=== PATIENT | female | born 1960 | race Caucasian/White ===

== ENCOUNTER 2017-03-20 21:25 | Inpatient (IN) | payer MEDICAID ==
--- NOTE | 2017-03-20 21:42 | C.PDOC ---
History Of Present Illness pt was at a wedding libertarian, felice chavez began to have chest pain, some shortness of breath and became diaphoretic. Has hx of previous mi, was given 4 81 mg asa , 4 sl ntg, Time Seen by Provider: 03/20/17 21:25 Chief Complaint (Nursing): Chest Pain History Per: Patient, EMS History/Exam Limitations: no limitations Onset/Duration Of Symptoms: Hrs Current Symptoms Are (Timing): Still Present Context: Other Severity: Severe Pain Scale Rating Of: 8 Quality: Sharp Associated Symptoms: Nausea. denies: Dyspnea Alleviating Factors: None Nitro Therapy Administered: 3, Per EMS, No Relief Recent travel outside of the [place]: No Additional History Per: Patient Past Medical History Reviewed: Historical Data, Nursing Documentation, Vital Signs Vital Signs: Last Vital Signs Temp Pulse 106 H 03/20/17 21:29 Resp BP 108/69 03/20/17 21:29 Pulse Ox 92 L 03/20/17 21:58 - Medical History PMH: HTN, Hypercholesterolemia Denies: Chronic Kidney Disease Surgical History: Coronary Stent (2) Family History: States: No Known Family Hx - Social History Hx Alcohol Use: No Hx Substance Use: No - Immunization History Hx Tetanus Toxoid Vaccination: No Hx Influenza Vaccination: No Hx Pneumococcal Vaccination: No Review Of Systems Constitutional: Positive for: Sweats. Negative for: Fever, Chills Eyes: Negative for: Redness Cardiovascular: Positive for: Chest Pain Respiratory: Negative for: Cough Gastrointestinal: Positive for: Nausea. Negative for: Vomiting, Abdominal Pain Genitourinary: Negative for: Dysuria Musculoskeletal: Positive for: Back Pain Skin: Negative for: Rash Neurological: Negative for: Weakness Psych: Positive for: Anxiety Physical Exam - Physical Exam Appears: In Acute Distress Skin: Warm, Diaphoretic Head: Normacephalic Eye(s): bilateral: Normal Inspection Oral Mucosa: Moist Neck: Supple Chest: Symmetrical Cardiovascular: Rhythm Regular Respiratory: No Rales, Rhonchi, No Wheezing Gastrointestinal/Abdominal: Soft, No Tenderness, No Distention Back: No CVA Tenderness Extremity: No Tenderness Extremity: Bilateral: Atraumatic, Normal Color And Temperature, Normal ROM Pulses: Left Dorsalis Pedis: Normal, Right Dorsalis Pedis: Normal Neurological/Psych: Oriented x3, Normal Speech, Normal Cognition Gait: Unable To Assess ED Course And Treatment - Laboratory Results Result Diagrams: 03/20/17 21:47 03/20/17 21:47 ECG: Interpreted By Me, Viewed By Me ECG Rhythm: Sinus Tachycardia (112), ST/T Changes (poss ant wall mi) O2 Sat by Pulse Oximetry: 92 Pulse Ox Interpretation: Abnormal - Radiology CXR: Interpreted by Me, Viewed By Me CXR Interpretation: Yes: Other (top nl heart). No: Infiltrates, Fracture Progress Note: spoke with dr bishop at 9:15 PM after life net ekg - will repeat on arrival. 9:22 pm. repeated ekg sent to dr bishop. code heart activated Critical Care Time - Critical Care Note Total Time (in mins): 30 Documented critical care: time excludes all time spent performing seperately billable procedures. Disposition Discussed With Dr.: Linus Toledo Comment: accepted the pt on his service and took over the care at 10PM Doctor Will See Patient In The: ED Counseled Patient/Family Regarding: Studies Performed, Diagnosis - Disposition Disposition: HOSPITALIZED Disposition Time: 21:47 Condition: CRITICAL - Clinical Impression Clinical Impression: Chest pain, Acute myocardial infarction Decision To Admit - Pt Status Changed To: Hospital Disposition Of: Inpatient - Admit Certification Admit to Inpatient:: After my assessment, the patient will require hospitalization for at least two midnights. This is because of the severity of symptoms shown, intensity of services needed, and/or the medical risk in this patient being treated as an outpatient. - InPatient: Physician Admission Certification: I certify that this patient requires 2 or more midnights of care for the following reason:: After my assessment, the patient will require hospitalization for at least two midnights. This is because of the severity of symptoms shown, intensity of services needed, and/or the medical risk in this patient being treated as an outpatient. - . Bed Request Type: ICU Admitting Physician: Linus Toledo Patient Diagnosis: Chest pain, Acute myocardial infarction
[2017-03-20 21:51] LABS: BASO % 0.2 % (0.0-2.0); EOS # 0.1 K/uL (0.0-0.7); EOS % 0.5 % (0.0-4.0); HEMATOCRIT 40.8 % (34.0-47.0); LYMPH # 5.1 K/uL (1.0-4.3); LYMPH % 28.1 % (20.0-40.0); MEAN CELL VOLUME 86.4 fL (81.0-99.0); MEAN CORPUSCULAR HEMOGLOBIN 28.4 pg (27.0-31.0); MEAN CORPUSCULAR HGB CONC 32.9 g/dL (33.0-37.0); MEAN PLATELET VOLUME 9.3 fL (7.2-11.7); MONO # 1.4 K/uL (0.0-0.8); MONO % 7.8 % (0.0-10.0); RED CELL DISTRIBUTION WIDTH 13.9 % (11.5-14.5)
--- NOTE | 2017-03-20 21:54 | CP.PCM.HP ---
<Roxanne Quintero - Last Filed: 03/20/17 23:04> History of Present Illness - History of Present Illness History of Present Illness: Medicine Note CC: Chest pain HPI: 56 F with PMHx of HTN, HLD, DM, CAD, [place] x2 with 2 stents (2011) presented to ED with Chest pain. CODE HEART called 21:35. Patient reports she was attending a wedding today when midsternal chest pain started 2 hours prior to arrival. The pain was pressure like in nature, radiated to her back and down her left arm. She became diaphoretic, SOB, she experienced nausea as well. She was given ASA and nitro out on the field, upon arrival EKG: Sinus Tachycardia ( 112), ST/T Changes (poss ant wall [place]). Heparin, Brilinta administered. Dr. Mary notified patient sent to [facility]. PMHx: HTN, HLD, DM, CAD, [place] x2 with 2 stents (2011) PSHx: Cardiac Stents Meds: Lipitor, Metoprolol, metformin All: NKDA SHx: smokes 10 cigarettes per day /20 years, denied alcohol or illicit drug use FHx: brother and father had [place] Present on Admission - Present on Admission Any Indicators Present on Admission: No Review of Systems - Constitutional Constitutional: absent: Headache - EENT Eyes: absent: Change in Vision Ears: absent: Tinnitus Nose/Mouth/Throat: absent: Dysphagia, Sore Throat - Breasts Breasts: absent: Pain - Cardiovascular Cardiovascular: Chest Pain, Diaphoresis, Pain Radiating to Arm/Neck/Jaw - Respiratory Respiratory: absent: Cough, Dyspnea - Gastrointestinal Gastrointestinal: absent: Abdominal Pain, Nausea, Vomiting - Genitourinary Genitourinary: absent: Dysuria, Hematuria - Musculoskeletal Musculoskeletal: Back Pain - Integumentary Integumentary: absent: Wounds - Neurological Neurological: absent: Syncope, Tingling, Vertigo, Weakness - Psychiatric Psychiatric: absent: Anxiety, Depression - Hematologic/Lymphatic Hematologic: absent: Easy Bleeding, Easy Bruising Past Patient History - Infectious Disease Hx of Infectious Diseases: None - Past Social History Smoking Status: Never Smoked - CARDIAC Hx Hypercholesterolemia: Yes Hx Hypertension: Yes - NEUROLOGICAL Hx Neurological Disorder: No - HEENT Hx HEENT Problems: No - RENAL Hx Chronic Kidney Disease: No - ENDOCRINE/METABOLIC Hx Diabetes Mellitus Type 1: Yes - PSYCHIATRIC Hx Substance Use: No - SURGICAL HISTORY Hx Coronary Stent: Yes (2) - ANESTHESIA Hx Anesthesia: Yes Hx Anesthesia Reactions: No Meds Allergies/Adverse Reactions: Allergies Allergy/AdvReac Type Severity Reaction Status Date / Time No Known Allergies Allergy Unverified 03/20/17 21:36 Physical Exam - Constitutional Appears: In Acute Distress - Head Exam Head Exam: NORMAL INSPECTION, NORMOCEPHALIC - Eye Exam Eye Exam: EOMI, Normal appearance, PERRL - ENT Exam ENT Exam: Mucous Membranes Moist - Respiratory Exam Respiratory Exam: Clear to Auscultation Bilateral, NORMAL BREATHING PATTERN. absent: Wheezes - Cardiovascular Exam Cardiovascular Exam: Tachycardia - GI/Abdominal Exam GI & Abdominal Exam: Normal Bowel Sounds, Soft. absent: Tenderness - Rectal Exam Rectal Exam: Deferred - Extremities Exam Extremities exam: Positive for: normal inspection, pedal pulses present. Negative for: pedal edema, tenderness - Back Exam Back exam: NORMAL INSPECTION - Neurological Exam Neurological exam: Alert, CN II-XII Intact, Oriented x3 - Skin Skin Exam: Diaphoretic, Intact, Pallor, Warm Results - Vital Signs Recent Vital Signs: Last Vital Signs Temp Pulse 106 H 03/20/17 21:29 Resp BP 108/69 03/20/17 21:29 Pulse Ox 92 L 03/20/17 21:42 - Labs Result Diagrams: 03/20/17 21:47 03/20/17 21:47 Assessment & Plan - Assessment and Plan (Free Text) Assessment: 56 F with PMHx of HTN, HLD, DM, CAD, [place] x2 with 2 stents (2011) presented to ED with Chest pain. Plan: STEMI * Code Heart initiated @ 21:35 * EKG: Sinus Tachycardia (112), ST/T Changes (poss ant wall UT) * Given ASA, Nitro on the field, heparin, brilinta, morphine in ED. * Dr. Mary called - patient was sent up to cardiac [facility] training [facility] * Admitted to ICU s/p cardiac cath Hx CAD * [place] x2 with 2 stents (2011) HTN * Patient takes Metoprolol at home, pending reccs by Dr. Mary. HLD * Crestor 5mg PO QHS * Lipid panel: WNL DM * Accuchecks * ISS-low * HGBA1C 6.7 Prophylactic Measure * GI PPX: Protonix 40mg PO daily * DVT PPX: SCDs, and anticoagulation as per Dr. Mary * Heart Healthy Diet * Zofran PRN * Toradol and Morphine PRN for pain control DW Ingrid Herrera DO, PGY-1 <Linus Toledo P - Last Filed: 03/26/17 06:32> Results - Vital Signs Recent Vital Signs: Last Vital Signs Temp 98.4 F 03/23/17 16:00 Pulse 90 03/23/17 18:00 Resp 18 03/23/17 18:00 BP 111/64 03/23/17 15:47 Pulse Ox 96 03/23/17 12:20 - Labs Result Diagrams: 03/22/17 06:20 03/22/17 06:20 Attending/Attestation - Attestation I have personally seen and examined this patient.: Yes I have fully participated in the care of the patient.: Yes I have reviewed all pertinent clinical information: Yes
[2017-03-20 21:58] LABS: INR 0.9
[2017-03-20 21:59] LABS: CHLORIDE 106 mmol/L (98-107)
[2017-03-20 22:00] LABS: POTASSIUM 3.3 mmol/L (3.6-5.2); SODIUM 140 mmol/L (132-148)
[2017-03-20 22:02] LABS: BILIRUBIN,TOTAL 0.6 mg/dL (0.2-1.3); CARBON DIOXIDE 21 mmol/L (22-30); CHOLESTEROL 160 mg/dL (0-199); GFR AFRICAN-AMERICAN > 60
[2017-03-20 22:03] LABS: ALB/GLOB RATIO 1.3 (1.0-2.1); ALKALINE PHOSPHATASE 88 U/L (38-126); ALT/SGPT 32 U/L (9-52); AST/SGOT 24 U/L (14-36); BLOOD UREA NITROGEN 14 mg/dL (7-17); CALCIUM 9.7 mg/dl (8.6-10.4); GLUCOSE,RANDOM 196 mg/dL (65-105); TOTAL PROTEIN 7.6 g/dL (6.3-8.3)
[2017-03-20] MEDS ORDERED: Eptifibatide 20 mg/10mL Inj IVP ONE (22:48)
[2017-03-20] MEDS ORDERED: Eptifibatide 0.75 mg/ml 75 MG/100 ML BOTTLE IV ONE (22:48)
[2017-03-20] MEDS ORDERED: Sodium Chloride 0.9% 1,000 ML IV ONE (23:40)
[2017-03-21] MEDS: Eptifibatide 0.75 mg/ml 75 MG/100 ML BOTTLE IV SCH ×5 (00:03→21:59)
--- NOTE | 2017-03-21 00:40 | CP.PCM.CON ---
History of Present Illness - History of Present Illness History of Present Illness: 56 Female with PMHx of HTN, Hyperlipidemia, DM, CAD, [place] x2 with 2 stents (2011 ) presented to ED with Chest pain. Patient was at a wedding 710/17 when she developed midsternal chest pain , pressure like in nature, radiated to her back and down her left arm associated with diaphoresis,nausea and shortness of breath. She was given ASA and nitro out on the field, upon arrival EKG: Sinus Tachycardia , ST/T Changes (poss ant wall [place]). Heparin, Brilinta administered. Code heart called sent to [facility]. Cath report not available.Had Stent placed in LADl as per report Denies chest pain now Meds: Lipitor, Metoprolol, metformin ,zetia,plavix All: NKDA SHx: smokes 10 cigarettes per day /20 years, denied alcohol or illicit drug use FHx: brother and father had [place] Review of Systems - Constitutional Constitutional: absent: Fever, Malaise, Weakness - EENT Eyes: absent: Change in Vision Ears: absent: Tinnitus, Dizziness Nose/Mouth/Throat: absent: Sore Throat, Neck Pain - Cardiovascular Cardiovascular: Chest Pain, Chest Pain at Rest, Dyspnea on Exertion, Pain Radiating to Arm/Neck/Jaw. absent: Claudication, Edema, Leg Edema, Palpitations , Pedal Edema, Syncope - Respiratory Respiratory: Dyspnea on Exertion. absent: Wheezing, Chest Congestion - Gastrointestinal Gastrointestinal: absent: Change in Bowel Habits, Heartburn - Genitourinary Genitourinary: absent: Dysuria - Musculoskeletal Musculoskeletal: absent: Myalgias, Stiffness - Integumentary Integumentary: absent: Unusual Bruising - Neurological Neurological: absent: Dizziness, Syncope - Endocrine Endocrine: absent: Polyphagia, Polyuria Past Patient History - Infectious Disease Hx of Infectious Diseases: None - Past Medical History & Family History Past Medical History?: Yes - Past Social History Smoking Status: Never Smoked Chewing Tobacco Use: No Occupation: unemployed Alcohol: None Drugs: Denies Home Situation {Lives}: With Family - CARDIAC Hx Cardiac Disorders: Yes Hx Hypercholesterolemia: Yes Hx Hypertension: Yes - PULMONARY Hx Respiratory Disorders: No - NEUROLOGICAL Hx Neurological Disorder: No - HEENT Hx HEENT Problems: Yes Other/Comment: eye glasses for reading - RENAL Hx Chronic Kidney Disease: No - ENDOCRINE/METABOLIC Hx Endocrine Disorders: Yes Hx Diabetes Mellitus Type 1: Yes - HEMATOLOGICAL/ONCOLOGICAL Hx Blood Disorders: No - MUSCULOSKELETAL/RHEUMATOLOGICAL Hx Musculoskeletal Disorders: No Hx Falls: No - GASTROINTESTINAL Hx Gastrointestinal Disorders: No - GENITOURINARY/GYNECOLOGICAL Hx Genitourinary Disorders: No - PSYCHIATRIC Hx Psychophysiologic Disorder: No Hx Substance Use: No - SURGICAL HISTORY Hx Surgeries: Yes Hx Cardiac Catheterization: Yes Hx Coronary Stent: Yes (2) - ANESTHESIA Hx Anesthesia: Yes Hx Anesthesia Reactions: No Hx Malignant Hyperthermia: No Has any member of the family had a problem w/ anesthesia?: No Meds Allergies/Adverse Reactions: Allergies Allergy/AdvReac Type Severity Reaction Status Date / Time No Known Allergies Allergy Unverified 03/20/17 21:36 - Medications Medications: Current Medications Aspirin (Aspirin) 325 mg PO DAILY [facility] Enalapril Maleate (Vasotec) 5 mg PO DAILY [facility] Furosemide (Lasix) 40 mg IVP ONCE ONE Stop: 03/21/17 10:01 Eptifibatide (Integrilin) 75 mg in 100 mls @ 9 mls/hr IV .Q11H7M [facility] Stop: 03/21/17 23:46 Last Admin: 03/21/17 00:03 Dose: 9 mls/hr Sodium Chloride (Sodium Chloride 0.9%) 1,000 mls @ 50 mls/hr IV .Q20H ONE Stop: 03/21/17 19:39 Last Admin: 03/21/17 00:02 Dose: 50 mls/hr Insulin Human Regular (Novolin R) 0 unit SC ACHS JOSE FRANCISCO PRN Reason: Protocol Ketorolac Tromethamine (Toradol) 30 mg IVP Q6 PRN PRN Reason: Pain, moderate (4-7) Metoprolol Tartrate (Lopressor) 25 mg PO BID [facility] Morphine Sulfate (Morphine) 2 mg IVP Q4 PRN PRN Reason: Pain, severe (8-10) Ondansetron HCl (Zofran Inj) 4 mg IVP Q6H PRN PRN Reason: Nausea/Vomiting Pantoprazole Sodium (Protonix Ec Tab) 40 mg PO DAILY [facility] Pneumococcal Polyvalent Vaccine (Pneumovax 23 Vaccine) 0.5 ml IM .ONCE ONE Stop: 03/23/17 10:01 Rosuvastatin Calcium (Crestor) 10 mg PO HS [facility] Ticagrelor (Brilinta) 90 mg PO BID JOSE FRANCISCO Physical Exam - Constitutional Appears: No Acute Distress - Head Exam Head Exam: ATRAUMATIC, NORMAL INSPECTION, NORMOCEPHALIC - Eye Exam Eye Exam: EOMI, Normal appearance, PERRL. absent: Scleral icterus Pupil Exam: NORMAL ACCOMODATION - ENT Exam ENT Exam: Mucous Membranes Moist, Normal Exam - Neck Exam Neck exam: Positive for: Normal Inspection. Negative for: Lymphadenopathy - Respiratory Exam Respiratory Exam: Clear to Auscultation Bilateral, NORMAL BREATHING PATTERN. absent: Chest Wall Tenderness, Rhonchi, Wheezes, Respiratory Distress - Cardiovascular Exam Cardiovascular Exam: Tachycardia, REGULAR RHYTHM. absent: JVD - GI/Abdominal Exam GI & Abdominal Exam: Normal Bowel Sounds, Soft. absent: Tenderness - Back Exam Back exam: NORMAL INSPECTION. absent: CVA tenderness (L), CVA tenderness (R) - Neurological Exam Neurological exam: Alert, Oriented x3 - Psychiatric Exam Psychiatric exam: Normal Affect - Skin Skin Exam: Intact, Normal Color, Warm Results - Vital Signs Recent Vital Signs: Last Vital Signs Temp 98 F 03/20/17 22:10 Pulse 93 H 03/20/17 22:10 Resp 25 H 03/20/17 22:10 BP 116/71 03/20/17 22:10 Pulse Ox 92 L 03/20/17 22:18 - Labs Result Diagrams: 03/20/17 21:47 03/20/17 21:47 Labs: Laboratory Results - last 24 hr 03/20/17 03/20/17 03/20/17 21:47 21:47 21:47 WBC 18.0 H RBC 4.72 Hgb 13.4 Hct 40.8 MCV 86.4 MCH 28.4 MCHC 32.9 L RDW 13.9 Plt Count 293 MPV 9.3 Neut % (Auto) 63.4 Lymph % (Auto) 28.1 Sharp % (Auto) 7.8 Eos % (Auto) 0.5 Baso % (Auto) 0.2 Neut # 11.4 H Lymph # 5.1 H Sharp # 1.4 H Eos # 0.1 Baso # 0.0 PT 10.5 INR 0.9 APTT 26 Sodium 140 Potassium 3.3 L Chloride 106 Carbon Dioxide 21 L Anion Gap 16 BUN 14 Creatinine 0.7 Est GFR ( Amer) > 60 Est GFR (Non-Af Amer) > 60 Random Glucose 196 H Hemoglobin A1c Calcium 9.7 Total Bilirubin 0.6 AST 24 ALT 32 Alkaline Phosphatase 88 Total Creatine Kinase 129 CK-MB (Mass) 1.02 Troponin I, Quant < 0.0120 Total Protein 7.6 Albumin 4.3 Globulin 3.3 Albumin/Globulin Ratio 1.3 Triglycerides 106 Cholesterol 160 LDL Cholesterol Direct 87 HDL Cholesterol 59 Serum Ketones Small Blood Type Antibody Screen 03/20/17 03/20/17 21:47 21:47 WBC RBC Hgb Hct MCV MCH MCHC RDW Plt Count MPV Neut % (Auto) Lymph % (Auto) Sharp % (Auto) Eos % (Auto) Baso % (Auto) Neut # Lymph # Sharp # Eos # Baso # PT INR APTT Sodium Potassium Chloride Carbon Dioxide Anion Gap BUN Creatinine Est GFR ( Amer) Est GFR (Non-Af Amer) Random Glucose Hemoglobin A1c 6.7 H Calcium Total Bilirubin AST ALT Alkaline Phosphatase Total Creatine Kinase CK-MB (Mass) Troponin I, Quant Total Protein Albumin Globulin Albumin/Globulin Ratio Triglycerides Cholesterol LDL Cholesterol Direct HDL Cholesterol Serum Ketones Blood Type A NEGATIVE Antibody Screen Negative Assessment & Plan - Assessment and Plan (Free Text) Assessment: 1.CAD s/p Stents in the past.LAD stent placed today.On Brilinta,aspirin and epifibatide drip 2.HTN/Hyperlipidemia continue medications-on enalapril,metoprolol and rosuvastatin 3.DM continue meds.hbAIC 6.7.On mEtformin at home.Insulin Coverage. 4.Hypokalemia-potassium replaced,rpt labs
[2017-03-21 06:19] LABS: BASO % 0.2 % (0.0-2.0); EOS % 0.2 % (0.0-4.0); HEMATOCRIT 37.4 % (34.0-47.0); LYMPH # 1.9 K/uL (1.0-4.3); LYMPH % 15.3 % (20.0-40.0); MEAN CELL VOLUME 88.4 fL (81.0-99.0); MEAN CORPUSCULAR HEMOGLOBIN 28.6 pg (27.0-31.0); MEAN CORPUSCULAR HGB CONC 32.3 g/dL (33.0-37.0); MEAN PLATELET VOLUME 9.6 fL (7.2-11.7); MONO # 0.9 K/uL (0.0-0.8); MONO % 7.4 % (0.0-10.0); NRBC % 0.1 % (0.0-2.0); RED CELL DISTRIBUTION WIDTH 13.4 % (11.5-14.5); WHITE BLOOD COUNT 12.1 K/uL (4.8-10.8)
[2017-03-21 06:33] LABS: CHLORIDE 105 mmol/L (98-107); POTASSIUM 4.4 mmol/L (3.6-5.2); SODIUM 135 mmol/L (132-148)
[2017-03-21 06:35] LABS: ALB/GLOB RATIO 1.1 (1.0-2.1); ALKALINE PHOSPHATASE 56 U/L (38-126); AST/SGOT 138 U/L (14-36); BILIRUBIN,TOTAL 0.5 mg/dL (0.2-1.3); CARBON DIOXIDE 20 mmol/L (22-30); GFR AFRICAN-AMERICAN > 60; TOTAL PROTEIN 6.6 g/dL (6.3-8.3)
[2017-03-21 06:36] LABS: ALT/SGPT 38 U/L (9-52); BLOOD UREA NITROGEN 10 mg/dL (7-17); GLUCOSE,RANDOM 128 mg/dL (65-105); MAGNESIUM 1.6 mg/dL (1.6-2.3)
[2017-03-21 07:04] LABS: THYROID STIMULATING HORMONE 0.27 mIU/L (0.46-4.68)
[2017-03-21] MEDS: (Novolin R) Insulin Human Regular 100 units/ml vial SC SCH ×4 (07:52→21:43)
--- NOTE | 2017-03-21 08:21 | CP.PCM.PN ---
Subjective - Date & Time of Evaluation Date of Evaluation: 03/21/17 Time of Evaluation: 08:00 - Subjective Subjective: Hospitalist Progress Note (Patient was seen and examined at 8:00 AM 03/21/17 ICU Bed 3) 56 year old female (PMHx CAD, HTN, HLD, DM 2) presented to [facility] ER with midsternal chest pain (described as pressure like, radiating to back and down the left arm, associated with SOB/Diaphoresis/Nausea). ST changes were noted on EKG and CODE HEART was called and patient underwent Cardiac Catheterization leading to stenting of the LAD. CODE STATUS: FULL CODE. NO Advance Directive/Living Will. Designates as Health Care Proxy Currrently upon FULL ROS there is NO chest pain, NO palpitations, NO SOB/Cough/ Wheezing, NO abdominal pain, NO n/v/d/c (last bowel movement was 03/20/17 and it was normal), NO burning/pain with urination, NO lightheadedness/dizziness, NO headache, NO new changes in vision, NO new changes in hearing, NO paresthesias, NO diaphoresis. Exam: HEENT: NCA, EOMI, PERRLA, NO lymphadenopathy, NO thyromegaly, NO pharyngeal erythema/exudate Cardio: NS1 and NS2, NO M/R/G Resp: CTA B/L, NO R/R/W GI: BSx4 are decreased, NT, ND, NO HSM, NO guarding rebound tenderness Ext: Pulses are strong and equal, Capillary Refill is 2 seconds, NO edema, NO bleeding at right groin entry site Neuro: CN II through XII are grossly intact Assessment and Plan: 1). STEMMI ASA 325 mg PO 1x/day Lisinopril 5 mg PO 1x/day Metoprolol 25 mg PO 2x/day Brilinta 90 mg PO 2x/day Eptifibatide 75 mg/100 ml at 9 ml/hour till 11:45 PM 03/21/[address] Mary F/U 2D Echocardiogram 2). Hx CAD See Assessment and Plan #1 3). Hx HTN Lisinopril and Metoprolol as above 4). Hx HLD Crestor 10 mg PO QHS Lipid Panel is at goal 5). Hx DM 2 HgBA1C 6.7 HOLDING Metformin 500 mg PO 2x/day for the next 48 hours RISS with Accuchecks 6). Low TSH Repeat TSH with T4 ordered for 03/22/17 6). Prophylactic Measures Morphine 2 mg IV Q4H PRN Pain Zofran 4 mg IV Q6H PRN N/V Protonix 40 mg PO 1x/day NS @ 50 ml/hour Objective - Vital Signs/Intake and Output Vital Signs (last 24 hours): Temp Pulse Resp BP Pulse Ox 97.5 F L 100 H 19 125/78 99 03/21/17 04:00 03/21/17 07:00 03/21/17 07:00 03/21/17 06:52 03/21/17 07:00 Intake and Output: 03/21/17 03/21/17 06:59 18:59 Intake Total 513 Output Total 350 Balance 163 - Medications Medications: Current Medications Aspirin (Aspirin) 325 mg PO DAILY [facility] Enalapril Maleate (Vasotec) 5 mg PO DAILY [facility] Furosemide (Lasix) 40 mg IVP ONCE ONE Stop: 03/21/17 10:01 Eptifibatide (Integrilin) 75 mg in 100 mls @ 9 mls/hr IV .Q11H7M [facility] Stop: 03/21/17 23:46 Last Admin: 03/21/17 07:57 Dose: 9 mls/hr Sodium Chloride (Sodium Chloride 0.9%) 1,000 mls @ 50 mls/hr IV .Q20H ONE Stop: 03/21/17 19:39 Last Admin: 03/21/17 00:02 Dose: 50 mls/hr Insulin Human Regular (Novolin R) 0 unit SC ACHS JOSE FRANCISCO PRN Reason: Protocol Last Admin: 03/21/17 07:52 Dose: Not Given Metoprolol Tartrate (Lopressor) 25 mg PO BID [facility] Morphine Sulfate (Morphine) 2 mg IVP Q4 PRN PRN Reason: Pain, severe (8-10) Ondansetron HCl (Zofran Inj) 4 mg IVP Q6H PRN PRN Reason: Nausea/Vomiting Pantoprazole Sodium (Protonix Ec Tab) 40 mg PO DAILY [facility] Pneumococcal Polyvalent Vaccine (Pneumovax 23 Vaccine) 0.5 ml IM .ONCE ONE Stop: 03/23/17 10:01 Rosuvastatin Calcium (Crestor) 10 mg PO HS [facility] Ticagrelor (Brilinta) 90 mg PO BID [facility] - Labs Labs: 03/21/17 06:11 03/21/17 06:13 PT 10.5 SECONDS (9.7-12.2) 03/20/17 21:47 INR 0.9 03/20/17 21:47 APTT 26 SECONDS (21-34) 03/20/17 21:47
--- NOTE | 2017-03-21 08:56 | RAD ---
HISTORY: code heart COMPARISON: No prior. FINDINGS: LUNGS: There is a possible cystic emphysematous changes in the suprahilar regions/ tiny blebs. No dense consolidation. PLEURA: Left inferolateral pleural thickening with possible tiny pleural effusion. A small right pleural effusion is not excluded. . Summation of soft tissues could simulate the appearance of the right costophrenic angle. No pneumothorax apparent. CARDIOVASCULAR: Defibrillator device in place. Heart size within normal limits. OSSEOUS STRUCTURES: No significant abnormalities. VISUALIZED UPPER ABDOMEN: Normal. OTHER FINDINGS: None. IMPRESSION: Small left pleural effusion and/or pleural thickening. Small right pleural effusion versus summation of the right breast soft tissues. Tiny cystic emphysematous changes and/or bronchiectasis suprahilar locations. No consolidation.
[2017-03-21] MEDS: Pantoprazole 40 mg EC Tab PO SCH (09:48)
--- NOTE | 2017-03-21 12:05 | CP.PCM.CON ---
History of Present Illness - History of Present Illness History of Present Illness: Middle aged female who presented with STEMI Past Patient History - Infectious Disease Hx of Infectious Diseases: None - Past Medical History & Family History Past Medical History?: Yes - Past Social History Smoking Status: Never Smoked Chewing Tobacco Use: No Occupation: unemployed Alcohol: None Drugs: Denies Home Situation {Lives}: With Family - CARDIAC Hx Cardiac Disorders: Yes Hx Hypercholesterolemia: Yes Hx Hypertension: Yes - PULMONARY Hx Respiratory Disorders: No - NEUROLOGICAL Hx Neurological Disorder: No - HEENT Hx HEENT Problems: Yes Other/Comment: eye glasses for reading - RENAL Hx Chronic Kidney Disease: No - ENDOCRINE/METABOLIC Hx Endocrine Disorders: Yes Hx Diabetes Mellitus Type 1: Yes - HEMATOLOGICAL/ONCOLOGICAL Hx Blood Disorders: No - MUSCULOSKELETAL/RHEUMATOLOGICAL Hx Musculoskeletal Disorders: No Hx Falls: No - GASTROINTESTINAL Hx Gastrointestinal Disorders: No - GENITOURINARY/GYNECOLOGICAL Hx Genitourinary Disorders: No - PSYCHIATRIC Hx Psychophysiologic Disorder: No Hx Substance Use: No - SURGICAL HISTORY Hx Surgeries: Yes Hx Cardiac Catheterization: Yes Hx Coronary Stent: Yes (2) - ANESTHESIA Hx Anesthesia: Yes Hx Anesthesia Reactions: No Hx Malignant Hyperthermia: No Has any member of the family had a problem w/ anesthesia?: No Meds Allergies/Adverse Reactions: Allergies Allergy/AdvReac Type Severity Reaction Status Date / Time No Known Allergies Allergy Unverified 03/20/17 21:36 - Medications Medications: Current Medications Aspirin (Aspirin) 325 mg PO DAILY [facility] Last Admin: 03/21/17 09:46 Dose: 325 mg Enalapril Maleate (Vasotec) 5 mg PO DAILY [facility] Last Admin: 03/21/17 09:48 Dose: 5 mg Eptifibatide (Integrilin) 75 mg in 100 mls @ 9 mls/hr IV .Q11H7M [facility] Stop: 03/21/17 23:46 Last Admin: 03/21/17 07:57 Dose: 9 mls/hr Sodium Chloride (Sodium Chloride 0.9%) 1,000 mls @ 50 mls/hr IV .Q20H ONE Stop: 03/21/17 19:39 Last Admin: 03/21/17 00:02 Dose: 50 mls/hr Insulin Human Regular (Novolin R) 0 unit SC ACHS [facility] PRN Reason: Protocol Last Admin: 03/21/17 07:52 Dose: Not Given Metoprolol Tartrate (Lopressor) 25 mg PO BID [facility] Last Admin: 03/21/17 09:47 Dose: 25 mg Morphine Sulfate (Morphine) 2 mg IVP Q4 PRN PRN Reason: Pain, severe (8-10) Ondansetron HCl (Zofran Inj) 4 mg IVP Q6H PRN PRN Reason: Nausea/Vomiting Pantoprazole Sodium (Protonix Ec Tab) 40 mg PO DAILY [facility] Last Admin: 03/21/17 09:48 Dose: 40 mg Pneumococcal Polyvalent Vaccine (Pneumovax 23 Vaccine) 0.5 ml IM .ONCE ONE Stop: 03/23/17 10:01 Rosuvastatin Calcium (Crestor) 10 mg PO [facility] Ticagrelor (Brilinta) 90 mg PO BID [facility] Last Admin: 03/21/17 09:47 Dose: 90 mg Physical Exam - Head Exam Head Exam: NORMOCEPHALIC - Neck Exam Neck exam: Positive for: Normal Inspection - Respiratory Exam Respiratory Exam: NORMAL BREATHING PATTERN - Cardiovascular Exam Cardiovascular Exam: REGULAR RHYTHM - GI/Abdominal Exam GI & Abdominal Exam: Normal Bowel Sounds - Extremities Exam Extremities exam: Positive for: normal inspection - Neurological Exam Neurological exam: Oriented x3 Results - Vital Signs Recent Vital Signs: Last Vital Signs Temp 98.0 F 03/21/17 08:00 Pulse 91 H 03/21/17 11:07 Resp 20 03/21/17 11:07 BP 104/67 03/21/17 11:07 Pulse Ox 100 03/21/17 11:07 - Labs Result Diagrams: 03/22/17 06:20 03/22/17 06:20 Labs: Laboratory Results - last 24 hr 03/20/17 03/20/17 03/20/17 21:47 21:47 21:47 WBC 18.0 H RBC 4.72 Hgb 13.4 Hct 40.8 MCV 86.4 MCH 28.4 MCHC 32.9 L RDW 13.9 Plt Count 293 MPV 9.3 Neut % (Auto) 63.4 Lymph % (Auto) 28.1 [place]ombs % (Auto) 7.8 Eos % (Auto) 0.5 Baso % (Auto) 0.2 Neut # 11.4 H Lymph # 5.1 H [place]ombs # 1.4 H Eos # 0.1 Baso # 0.0 PT 10.5 INR 0.9 APTT 26 Sodium 140 Potassium 3.3 L Chloride 106 Carbon Dioxide 21 L Anion Gap 16 BUN 14 Creatinine 0.7 Est GFR ( Amer) > 60 Est GFR (Non-Af Amer) > 60 POC Glucose (mg/dL) Random Glucose 196 H Hemoglobin A1c Calcium 9.7 Phosphorus Magnesium Total Bilirubin 0.6 AST 24 ALT 32 Alkaline Phosphatase 88 Total Creatine Kinase 129 CK-MB (Mass) 1.02 Troponin I, Quant < 0.0120 Total Protein 7.6 Albumin 4.3 Globulin 3.3 Albumin/Globulin Ratio 1.3 Triglycerides 106 Cholesterol 160 LDL Cholesterol Direct 87 HDL Cholesterol 59 TSH 3rd Generation Serum Ketones Small Blood Type Antibody Screen 03/20/17 03/20/17 03/21/17 21:47 21:47 06:11 WBC 12.1 H RBC 4.23 Hgb 12.1 Hct 37.4 MCV 88.4 D MCH 28.6 MCHC 32.3 L RDW 13.4 Plt Count 195 MPV 9.6 Neut % (Auto) 76.9 H Lymph % (Auto) 15.3 L [place] % (Auto) 7.4 Eos % (Auto) 0.2 Baso % (Auto) 0.2 Neut # 9.3 H Lymph # 1.9 [place]ombs # 0.9 H Eos # 0.0 Baso # 0.0 PT INR APTT Sodium Potassium Chloride Carbon Dioxide Anion Gap BUN Creatinine Est GFR ( Amer) Est GFR (Non-Af Amer) POC Glucose (mg/dL) Random Glucose Hemoglobin A1c 6.7 H Calcium Phosphorus Magnesium Total Bilirubin AST ALT Alkaline Phosphatase Total Creatine Kinase CK-MB (Mass) Troponin I, Quant Total Protein Albumin Globulin Albumin/Globulin Ratio Triglycerides Cholesterol LDL Cholesterol Direct HDL Cholesterol TSH 3rd Generation Serum Ketones Blood Type A NEGATIVE Antibody Screen Negative 03/21/17 03/21/17 03/21/17 06:11 06:13 07:51 WBC RBC Hgb Hct MCV MCH MCHC RDW Plt Count MPV Neut % (Auto) Lymph % (Auto) [place] % (Auto) Eos % (Auto) Baso % (Auto) Neut # Lymph # [place]bs # Eos # Baso # PT INR APTT Sodium 135 Potassium 4.4 Chloride 105 Carbon Dioxide 20 L Anion Gap 14 BUN 10 Creatinine 0.5 L Est GFR ( Amer) > 60 Est GFR (Non-Af Amer) > 60 POC Glucose (mg/dL) 108 Random Glucose 128 H Hemoglobin A1c Calcium 8.0 L Phosphorus 3.0 Magnesium 1.6 Total Bilirubin 0.5 AST 138 H D ALT 38 Alkaline Phosphatase 56 Total Creatine Kinase 1097 H CK-MB (Mass) 71.1 H Troponin I, Quant 14.4000 H* Total Protein 6.6 Albumin 3.4 L D Globulin 3.2 Albumin/Globulin Ratio 1.1 Triglycerides 87 Cholesterol 124 LDL Cholesterol Direct 65 HDL Cholesterol 45 TSH 3rd Generation 0.27 L Serum Ketones Blood Type Antibody Screen Assessment & Plan (1) Acute myocardial infarction Assessment and Plan: Elderly female with history of CAD now with STEMI. successful PCI of LAD. Echo reviewed anterior and apical hypokinesia. Reduced EF. DAPT compliance. Smoking cessation. Risk factor modification. Status: Acute
[2017-03-22 06:30] LABS: BASO % 0.2 % (0.0-2.0); EOS # 0.1 K/uL (0.0-0.7); EOS % 0.6 % (0.0-4.0); HEMATOCRIT 42.4 % (34.0-47.0); LYMPH # 2.5 K/uL (1.0-4.3); LYMPH % 25.1 % (20.0-40.0); MEAN CELL VOLUME 87.6 fL (81.0-99.0); MEAN CORPUSCULAR HEMOGLOBIN 28.9 pg (27.0-31.0); MEAN CORPUSCULAR HGB CONC 32.9 g/dL (33.0-37.0); MEAN PLATELET VOLUME 9.3 fL (7.2-11.7); MONO # 0.9 K/uL (0.0-0.8); MONO % 9.4 % (0.0-10.0); RED CELL DISTRIBUTION WIDTH 14.3 % (11.5-14.5); WHITE BLOOD COUNT 9.9 K/uL (4.8-10.8)
[2017-03-22 06:38] LABS: CHLORIDE 104 mmol/L (98-107); SODIUM 138 mmol/L (132-148)
[2017-03-22 06:39] LABS: POTASSIUM 4.5 mmol/L (3.6-5.2)
[2017-03-22 06:40] LABS: GFR AFRICAN-AMERICAN > 60
[2017-03-22 06:41] LABS: ALB/GLOB RATIO 1.1 (1.0-2.1); ALKALINE PHOSPHATASE 69 U/L (38-126); ALT/SGPT 38 U/L (9-52); AST/SGOT 117 U/L (14-36); BILIRUBIN,TOTAL 0.5 mg/dL (0.2-1.3); BLOOD UREA NITROGEN 13 mg/dL (7-17); CARBON DIOXIDE 28 mmol/L (22-30); GLUCOSE,RANDOM 120 mg/dL (65-105); PHOSPHOROUS 2.5 mg/dL (2.5-4.5); TOTAL PROTEIN 7.1 g/dL (6.3-8.3)
[2017-03-22 06:42] LABS: CALCIUM 8.9 mg/dl (8.6-10.4); MAGNESIUM 2.1 mg/dL (1.6-2.3)
--- NOTE | 2017-03-22 07:05 | CP.CCUPN ---
<Kavitha Medina - Last Filed: 03/22/17 09:21> CCU Subjective - Physician Review Subjective (Free Text): 03/22/17 07:51 Patient seen and examined at bedside in the AM. Patient denies chest pain, shortness of breath, headache, change in vision, nausea, or vomiting. Patient stated she will be trying her best to stop smoking as she knows it is the best for her health. CCU Objective - Vital Signs / Intake & Output Vital Signs (Last 4 hours): Vital Signs Temp Pulse Resp BP Pulse Ox 03/22/17 06:30 96 H 17 97 03/22/17 06:22 99 H 13 101/69 99 03/22/17 06:20 104 H 14 100 03/22/17 06:10 118 H 18 89 L 03/22/17 06:07 95 H 16 106/70 99 03/22/17 06:00 96 H 19 99 03/22/17 05:53 101 H 17 106/66 100 03/22/17 05:50 107 H 19 96 03/22/17 05:40 99 H 20 96 03/22/17 05:37 98 H 20 104/69 96 03/22/17 05:30 96 H 20 96 03/22/17 05:22 99 H 21 111/70 96 03/22/17 05:20 98 H 19 97 03/22/17 05:10 99 H 20 96 03/22/17 05:07 95 H 19 113/71 97 03/22/17 05:00 95 H 23 97 03/22/17 04:52 99 H 18 118/73 98 03/22/17 04:50 102 H 19 98 03/22/17 04:40 96 H 20 95 03/22/17 04:37 97 H 19 111/69 95 03/22/17 04:30 96 H 19 96 03/22/17 04:22 97 H 19 103/61 96 03/22/17 04:20 98 H 21 96 03/22/17 04:10 94 H 19 96 03/22/17 04:07 94 H 19 106/65 96 03/22/17 04:00 97.5 F L 94 H 19 95 03/22/17 03:52 94 H 20 97/63 L 97 03/22/17 03:50 95 H 17 96 03/22/17 03:40 114 H 18 97 03/22/17 03:37 94 H 19 116/74 99 03/22/17 03:30 94 H 19 97 03/22/17 03:22 113 H 19 107/66 97 03/22/17 03:20 110 H 18 96 03/22/17 03:10 93 H 20 97 03/22/17 03:07 104 H 19 108/66 98 Intake and Output (Last 8hrs): Intake & Output 03/21/17 03/22/17 03/22/17 22:59 06:59 14:59 Intake Total 422 18 Output Total 1000 500 Balance -740 -622 Intake: Intake, IV Amount 372 18 Left Hand 300 Lt hand y-site 72 18 Oral 50 Output: Urine 1000 500 Urine, Voided 1000 500 Other: # Voids Urine, Voided 0 0 - Physical Exam Head: Positive for: Normocephalic Extroacular Muscles: Positive for: EOMI Conjunctiva: Positive for: Normal Mouth: Positive for: Moist Mucous Membranes Respiratory/Chest: Positive for: Clear to Auscultation, Good Air Exchange Cardiovascular: Positive for: Regular Rate and Rhythm, Normal S1, S2. Negative for: Murmurs Abdomen: Positive for: Normal Bowel Sounds. Negative for: Tenderness, Distention Lower Extremity: Positive for: Normal Inspection. Negative for: Edema Neurological: Positive for: GCS=15, Speech Normal Skin: Positive for: Normal Color Psychiatric: Positive for: Alert, Oriented x 3, Normal Insight, Normal Concentration - Medications Active Medications: Active Medications Generic Name Dose Route Start Last Admin Trade Name Freq PRN Reason Stop Dose Admin Aspirin 325 mg 03/21/17 10:00 03/21/17 09:46 Aspirin PO 325 mg DAILY [facility]CO Administration Enalapril Maleate 5 mg 03/21/17 10:00 03/21/17 09:48 Vasotec PO 5 mg DAILY JOSE FRANCISCO Administration Insulin Human Regular 0 unit 03/21/17 07:30 03/21/17 21:43 Novolin R SC Not Given ACHS [facility] Protocol Metoprolol Tartrate 25 mg 03/21/17 10:00 03/21/17 18:48 Lopressor PO 25 mg BID JOSE FRANCISCO Administration Morphine Sulfate 2 mg 03/20/17 23:07 Morphine IVP Q4 PRN Pain, severe (8-10) Ondansetron HCl 4 mg 03/20/17 23:00 Zofran Inj IVP Q6H PRN Nausea/Vomiting Pantoprazole Sodium 40 mg 03/21/17 10:00 03/21/17 09:48 Protonix Ec Tab PO 40 mg DAILY [facility]ISCO Administration Pneumococcal Polyvalent Vaccine 0.5 ml 03/23/17 10:00 Pneumovax 23 Vaccine IM 03/23/17 10:01 .ONCE ONE Rosuvastatin Calcium 10 mg 03/21/17 22:00 03/21/17 21:44 Crestor PO 10 mg HS JOSE FRANCISCO Administration Ticagrelor 90 mg 03/21/17 10:00 03/21/17 17:26 Brilinta PO 90 mg BID JOSE FRANCISCO Administration - Patient Studies Lab Studies: Lab Studies 03/22/17 03/22/17 03/22/17 Range/Units 06:20 06:20 06:20 WBC 9.9 (4.8-10.8) K/uL RBC 4.84 (3.80-5.20) Mil/uL Hgb 14.0 (11.0-16.0) g/dL Hct 42.4 (34.0-47.0) % MCV 87.6 (81.0-99.0) fL MCH 28.9 (27.0-31.0) pg MCHC 32.9 L (33.0-37.0) g/dL RDW 14.3 (11.5-14.5) % Plt Count 209 (130-400) K/uL MPV 9.3 (7.2-11.7) fL Neut % (Auto) 64.7 (50.0-75.0) % Lymph % (Auto) 25.1 (20.0-40.0) % Knox % (Auto) 9.4 (0.0-10.0) % Eos % (Auto) 0.6 (0.0-4.0) % Baso % (Auto) 0.2 (0.0-2.0) % Neut # 6.4 (1.8-7.0) K/uL Lymph # 2.5 (1.0-4.3) K/uL Knox # 0.9 H (0.0-0.8) K/uL Eos # 0.1 (0.0-0.7) K/uL Baso # 0.0 (0.0-0.2) K/uL Sodium 138 (132-148) mmol/L Potassium 4.5 (3.6-5.2) mmol/L Chloride 104 (98-107) mmol/L Carbon Dioxide 28 (22-30) mmol/L Anion Gap 11 (10-20) BUN 13 (7-17) mg/dL Creatinine 0.6 L (0.7-1.2) MG/DL Est GFR ( Amer) > 60 Est GFR (Non-Af Amer) > 60 POC Glucose (mg/dL) (65-110) mg/dL Random Glucose 120 H (65-105) mg/dL Calcium 8.9 (8.6-10.4) mg/dl Phosphorus 2.5 (2.5-4.5) mg/dL Magnesium 2.1 (1.6-2.3) mg/dL Total Bilirubin 0.5 (0.2-1.3) mg/dL AST 117 H (14-36) U/L ALT 38 (9-52) U/L Alkaline Phosphatase 69 (38-126) U/L Total Creatine Kinase (30-135) U/L CK-MB (Mass) (0.0-3.38) ng/mL Troponin I, Quant (0.00-0.120) ng/mL Total Protein 7.1 (6.3-8.3) g/dL Albumin 3.7 (3.5-5.0) g/dL Globulin 3.4 (2.2-3.9) gm/dL Albumin/Globulin Ratio 1.1 (1.0-2.1) Free T4 1.16 (0.78-2.19) ng/dL TSH 3rd Generation (0.46-4.68) mIU/L 03/21/17 03/21/17 03/21/17 Range/Units 21:14 16:09 15:41 WBC (4.8-10.8) K/uL RBC (3.80-5.20) Mil/uL Hgb (11.0-16.0) g/dL Hct (34.0-47.0) % MCV (81.0-99.0) fL MCH (27.0-31.0) pg MCHC (33.0-37.0) g/dL RDW (11.5-14.5) % Plt Count (130-400) K/uL MPV (7.2-11.7) fL Neut % (Auto) (50.0-75.0) % Lymph % (Auto) (20.0-40.0) % Knox % (Auto) (0.0-10.0) % Eos % (Auto) (0.0-4.0) % Baso % (Auto) (0.0-2.0) % Neut # (1.8-7.0) K/uL Lymph # (1.0-4.3) K/uL Knox # (0.0-0.8) K/uL Eos # (0.0-0.7) K/uL Baso # (0.0-0.2) K/uL Sodium (132-148) mmol/L Potassium (3.6-5.2) mmol/L Chloride (98-107) mmol/L Carbon Dioxide (22-30) mmol/L Anion Gap (10-20) BUN (7-17) mg/dL Creatinine (0.7-1.2) MG/DL Est GFR ( Amer) Est GFR (Non-Af Amer) POC Glucose (mg/dL) 152 H 121 H 73 (65-110) mg/dL Random Glucose (65-105) mg/dL Calcium (8.6-10.4) mg/dl Phosphorus (2.5-4.5) mg/dL Magnesium (1.6-2.3) mg/dL Total Bilirubin (0.2-1.3) mg/dL AST (14-36) U/L ALT (9-52) U/L Alkaline Phosphatase (38-126) U/L Total Creatine Kinase (30-135) U/L CK-MB (Mass) (0.0-3.38) ng/mL Troponin I, Quant (0.00-0.120) ng/mL Total Protein (6.3-8.3) g/dL Albumin (3.5-5.0) g/dL Globulin (2.2-3.9) gm/dL Albumin/Globulin Ratio (1.0-2.1) Free T4 (0.78-2.19) ng/dL TSH 3rd Generation (0.46-4.68) mIU/L 03/21/17 03/21/17 03/21/17 Range/Units 14:03 11:41 07:51 WBC (4.8-10.8) K/uL RBC (3.80-5.20) Mil/uL Hgb (11.0-16.0) g/dL Hct (34.0-47.0) % MCV (81.0-99.0) fL MCH (27.0-31.0) pg MCHC (33.0-37.0) g/dL RDW (11.5-14.5) % Plt Count (130-400) K/uL MPV (7.2-11.7) fL Neut % (Auto) (50.0-75.0) % Lymph % (Auto) (20.0-40.0) % Knox % (Auto) (0.0-10.0) % Eos % (Auto) (0.0-4.0) % Baso % (Auto) (0.0-2.0) % Neut # (1.8-7.0) K/uL Lymph # (1.0-4.3) K/uL Knox # (0.0-0.8) K/uL Eos # (0.0-0.7) K/uL Baso # (0.0-0.2) K/uL Sodium (132-148) mmol/L Potassium (3.6-5.2) mmol/L Chloride (98-107) mmol/L Carbon Dioxide (22-30) mmol/L Anion Gap (10-20) BUN (7-17) mg/dL Creatinine (0.7-1.2) MG/DL Est GFR ( Amer) Est GFR (Non-Af Amer) POC Glucose (mg/dL) 190 H 108 (65-110) mg/dL Random Glucose (65-105) mg/dL Calcium (8.6-10.4) mg/dl Phosphorus (2.5-4.5) mg/dL Magnesium (1.6-2.3) mg/dL Total Bilirubin (0.2-1.3) mg/dL AST (14-36) U/L ALT (9-52) U/L Alkaline Phosphatase (38-126) U/L Total Creatine Kinase 1043 H (30-135) U/L CK-MB (Mass) 53.9 H (0.0-3.38) ng/mL Troponin I, Quant 11.7000 H* (0.00-0.120) ng/mL Total Protein (6.3-8.3) g/dL Albumin (3.5-5.0) g/dL Globulin (2.2-3.9) gm/dL Albumin/Globulin Ratio (1.0-2.1) Free T4 (0.78-2.19) ng/dL TSH 3rd Generation (0.46-4.68) mIU/L 03/21/17 03/21/17 Range/Units 06:13 06:11 WBC (4.8-10.8) K/uL RBC (3.80-5.20) Mil/uL Hgb (11.0-16.0) g/dL Hct (34.0-47.0) % MCV (81.0-99.0) fL MCH (27.0-31.0) pg MCHC (33.0-37.0) g/dL RDW (11.5-14.5) % Plt Count (130-400) K/uL MPV (7.2-11.7) fL Neut % (Auto) (50.0-75.0) % Lymph % (Auto) (20.0-40.0) % Knox % (Auto) (0.0-10.0) % Eos % (Auto) (0.0-4.0) % Baso % (Auto) (0.0-2.0) % Neut # (1.8-7.0) K/uL Lymph # (1.0-4.3) K/uL Knox # (0.0-0.8) K/uL Eos # (0.0-0.7) K/uL Baso # (0.0-0.2) K/uL Sodium (132-148) mmol/L Potassium (3.6-5.2) mmol/L Chloride (98-107) mmol/L Carbon Dioxide (22-30) mmol/L Anion Gap (10-20) BUN (7-17) mg/dL Creatinine (0.7-1.2) MG/DL Est GFR ( Amer) Est GFR (Non-Af Amer) POC Glucose (mg/dL) (65-110) mg/dL Random Glucose (65-105) mg/dL Calcium (8.6-10.4) mg/dl Phosphorus (2.5-4.5) mg/dL Magnesium (1.6-2.3) mg/dL Total Bilirubin (0.2-1.3) mg/dL AST (14-36) U/L ALT (9-52) U/L Alkaline Phosphatase (38-126) U/L Total Creatine Kinase (30-135) U/L CK-MB (Mass) (0.0-3.38) ng/mL Troponin I, Quant 14.4000 H* (0.00-0.120) ng/mL Total Protein (6.3-8.3) g/dL Albumin (3.5-5.0) g/dL Globulin (2.2-3.9) gm/dL Albumin/Globulin Ratio (1.0-2.1) Free T4 (0.78-2.19) ng/dL TSH 3rd Generation 0.27 L (0.46-4.68) mIU/L Laboratory Results - last 24 hr 03/21/17 03/21/17 03/21/17 06:11 06:13 07:51 WBC RBC Hgb Hct MCV MCH MCHC RDW Plt Count MPV Neut % (Auto) Lymph % (Auto) Knox % (Auto) Eos % (Auto) Baso % (Auto) Neut # Lymph # Knox # Eos # Baso # Sodium Potassium Chloride Carbon Dioxide Anion Gap BUN Creatinine Est GFR ( Amer) Est GFR (Non-Af Amer) POC Glucose (mg/dL) 108 Random Glucose Calcium Phosphorus Magnesium Total Bilirubin AST ALT Alkaline Phosphatase Total Creatine Kinase CK-MB (Mass) Troponin I, Quant 14.4000 H* Total Protein Albumin Globulin Albumin/Globulin Ratio Free T4 TSH 3rd Generation 0.27 L 03/21/17 03/21/17 03/21/17 11:41 14:03 15:41 WBC RBC Hgb Hct MCV MCH MCHC RDW Plt Count MPV Neut % (Auto) Lymph % (Auto) Knox % (Auto) Eos % (Auto) Baso % (Auto) Neut # Lymph # Knox # Eos # Baso # Sodium Potassium Chloride Carbon Dioxide Anion Gap BUN Creatinine Est GFR ( Amer) Est GFR (Non-Af Amer) POC Glucose (mg/dL) 190 H 73 Random Glucose Calcium Phosphorus Magnesium Total Bilirubin AST ALT Alkaline Phosphatase Total Creatine Kinase 1043 H CK-MB (Mass) 53.9 H Troponin I, Quant 11.7000 H* Total Protein Albumin Globulin Albumin/Globulin Ratio Free T4 TSH 3rd Generation 03/21/17 03/21/17 03/22/17 16:09 21:14 06:20 WBC 9.9 RBC 4.84 Hgb 14.0 Hct 42.4 MCV 87.6 MCH 28.9 MCHC 32.9 L RDW 14.3 Plt Count 209 MPV 9.3 Neut % (Auto) 64.7 Lymph % (Auto) 25.1 Knox % (Auto) 9.4 Eos % (Auto) 0.6 Baso % (Auto) 0.2 Neut # 6.4 Lymph # 2.5 Knox # 0.9 H Eos # 0.1 Baso # 0.0 Sodium Potassium Chloride Carbon Dioxide Anion Gap BUN Creatinine Est GFR ( Amer) Est GFR (Non-Af Amer) POC Glucose (mg/dL) 121 H 152 H Random Glucose Calcium Phosphorus Magnesium Total Bilirubin AST ALT Alkaline Phosphatase Total Creatine Kinase CK-MB (Mass) Troponin I, Quant Total Protein Albumin Globulin Albumin/Globulin Ratio Free T4 TSH 3rd Generation 03/22/17 03/22/17 06:20 06:20 WBC RBC Hgb Hct MCV MCH MCHC RDW Plt Count MPV Neut % (Auto) Lymph % (Auto) Knox % (Auto) Eos % (Auto) Baso % (Auto) Neut # Lymph # Knox # Eos # Baso # Sodium 138 Potassium 4.5 Chloride 104 Carbon Dioxide 28 Anion Gap 11 BUN 13 Creatinine 0.6 L Est GFR ( Amer) > 60 Est GFR (Non-Af Amer) > 60 POC Glucose (mg/dL) Random Glucose 120 H Calcium 8.9 Phosphorus 2.5 Magnesium 2.1 Total Bilirubin 0.5 AST 117 H ALT 38 Alkaline Phosphatase 69 Total Creatine Kinase CK-MB (Mass) Troponin I, Quant Total Protein 7.1 Albumin 3.7 Globulin 3.4 Albumin/Globulin Ratio 1.1 Free T4 1.16 TSH 3rd Generation EKG/Cardiology Studies: Cardiology / EKG Studies 03/21/17 07:44 ELECTROCARDIOGRAM Q8H Comment: Mode Of Transportation: Reason For Exam: post stemi 03/21/17 13:00 EKG [ELECTROCARDIOGRAM] Q8H Comment: Mode Of Transportation: Reason For Exam: CODE HEART: STEMI 03/21/17 15:44 ELECTROCARDIOGRAM Q8H Comment: Mode Of Transportation: Reason For Exam: post stemi Fingerstick Blood Sugar Results: 152 Review of Systems - Constitutional Constitutional: absent: Fever - EENT Eyes: absent: Change in Vision - Cardiovascular Cardiovascular: absent: Chest Pain, Dyspnea, Palpitations - Respiratory Respiratory: Cough. absent: Dyspnea, Wheezing - Gastrointestinal Gastrointestinal: absent: Constipation, Diarrhea, Nausea, Vomiting - Genitourinary Genitourinary: absent: Dysuria - Neurological Neurological: absent: Headaches Critical Care Progress Note - Nutrition Nutrition: Nutrition Category Date Time Status Heart Healthy Diet [DIET] Diets 03/21/17 Breakfast Active Assessment/Plan - Assessment and Plan (Free Text) Assessment: 56 female with Past medical history of HTN, HLD, DM, CAD, [place] x2 with 2 stents ( 2011) presented to ED with Chest pain. Plan: Neuro: - Alert and oriented 3 Pulm: - Chest X-ray (03/20): Small left pleural effusion and or pleural thickening. Small right pleural effusion versus summation of the right breast soft tissues. Tiny cystic emphysematous changes and or bronchiectasis suprahilar locations. No consolidation. - Discussed smoking cessation CV: - s/p Cath 03/20: per the nurse a stent was placed in the proximal LAD - Outside Plant Technician Consult: Dr. Mary --> help appreciated - Brilinta 90mg BID - Aspirin 325mg PO daily - Enalapril 5mg PO daily - Metoprolol Tartrate 25mg PO BID - Rosuvastatin 10mg PO HS - Troponin: 11.7; 14.4; <0.0120 Endo: - ISS with Accuchecks - TSH: 0.30 - possibly secondary to [place] - Monitor Heme: - H/H: 14/42.4 Renal: - BUN/Cr: 13/0.6 GI: - Heart Healthy Diet DVT proph - SCDs GI proph - Protonix 40mg PO daily Disposition: Transfer to Tele Code status - full code Case discussed with Dr. Hever Medina PGY-1 <Ahsan Kathleen S - Last Filed: 03/22/17 17:22> CCU Objective - Vital Signs / Intake & Output Vital Signs (Last 4 hours): Vital Signs Temp Pulse Resp BP Pulse Ox 03/22/17 17:00 82 14 97 03/22/17 16:52 84 19 108/64 98 03/22/17 16:50 83 20 97 03/22/17 16:47 97/61 L 03/22/17 16:40 86 17 97 03/22/17 16:37 79 19 97/61 L 96 03/22/17 16:30 107 H 22 95 03/22/17 16:22 74 14 100/53 L 97 03/22/17 16:21 80 21 97 03/22/17 16:20 81 15 97 03/22/17 16:10 92 H 13 98 03/22/17 16:07 92 H 13 105/62 97 03/22/17 16:00 97.7 F 96 H 19 96 03/22/17 15:52 88 16 97/60 L 97 03/22/17 15:50 96 H 11 L 97 03/22/17 15:40 78 19 96 03/22/17 15:37 82 18 102/57 L 97 03/22/17 15:30 82 8 L 97 03/22/17 15:22 84 19 108/57 L 96 03/22/17 15:20 85 22 97 03/22/17 15:10 92 H 18 97 03/22/17 15:07 85 18 102/56 L 97 03/22/17 15:00 75 13 97 03/22/17 14:53 94 H 27 H 113/67 96 03/22/17 14:50 97 H 15 97 03/22/17 14:40 83 14 97 03/22/17 14:37 96 H 14 105/76 93 L 03/22/17 14:30 89 20 96 03/22/17 14:23 84 16 92/69 L 97 03/22/17 14:20 81 14 97 03/22/17 14:18 87 23 91/55 L 97 03/22/17 14:10 81 16 97 03/22/17 14:07 74 19 78/47 L 97 03/22/17 14:00 89 14 97 03/22/17 13:52 86 15 81/53 L 96 03/22/17 13:50 84 17 97 03/22/17 13:40 86 14 96 03/22/17 13:30 98 H 15 96 03/22/17 13:22 88 17 82/49 L 96 Intake and Output (Last 8hrs): Intake & Output 03/22/17 03/22/17 03/22/17 06:59 14:59 22:59 Intake Total 18 Output Total 500 550 450 Balance -482 -550 -450 Intake: Intake, IV Amount 18 Lt hand y-site 18 Output: Urine 500 550 450 Urine, Voided 500 550 450 Other: # Voids Urine, Voided 0 0 1 # Bowel Movements 1 - Medications Active Medications: Active Medications Generic Name Dose Route Start Last Admin Trade Name Freq PRN Reason Stop Dose Admin Aspirin 325 mg 03/21/17 10:00 03/22/17 09:33 Aspirin PO 325 mg DAILY [facility] Administration Enalapril Maleate 5 mg 03/21/17 10:00 03/22/17 16:47 Vasotec PO Not Given DAILY JOSE FRANCISCO Insulin Human Regular 0 unit 03/21/17 07:30 03/22/17 16:41 Novolin R SC Not Given ACHS [facility] Protocol Metoprolol Tartrate 25 mg 03/21/17 10:00 03/22/17 09:33 Lopressor PO 25 mg BID JOSE FRANCISCO Administration Morphine Sulfate 2 mg 03/20/17 23:07 Morphine IVP Q4 PRN Pain, severe (8-10) Ondansetron HCl 4 mg 03/20/17 23:00 Zofran Inj IVP Q6H PRN Nausea/Vomiting Pantoprazole Sodium 40 mg 03/21/17 10:00 03/22/17 09:33 Protonix Ec Tab PO 40 mg DAILY JOSE FRANCISCO Administration Pneumococcal Polyvalent Vaccine 0.5 ml 03/23/17 10:00 Pneumovax 23 Vaccine IM 03/23/17 10:01 .ONCE ONE Rosuvastatin Calcium 10 mg 03/21/17 22:00 03/21/17 21:44 Crestor PO 10 mg HS JOSE FRANCISCO Administration Ticagrelor 90 mg 03/21/17 10:00 03/22/17 17:12 Brilinta PO 90 mg BID JOSE FRANCISCO Administration - Patient Studies Lab Studies: Lab Studies 03/22/17 03/22/17 03/22/17 Range/Units 16:09 11:45 07:20 WBC (4.8-10.8) K/uL RBC (3.80-5.20) Mil/uL Hgb (11.0-16.0) g/dL Hct (34.0-47.0) % MCV (81.0-99.0) fL MCH (27.0-31.0) pg MCHC (33.0-37.0) g/dL RDW (11.5-14.5) % Plt Count (130-400) K/uL MPV (7.2-11.7) fL Neut % (Auto) (50.0-75.0) % Lymph % (Auto) (20.0-40.0) % Knox % (Auto) (0.0-10.0) % Eos % (Auto) (0.0-4.0) % Baso % (Auto) (0.0-2.0) % Neut # (1.8-7.0) K/uL Lymph # (1.0-4.3) K/uL Knox # (0.0-0.8) K/uL Eos # (0.0-0.7) K/uL Baso # (0.0-0.2) K/uL Sodium (132-148) mmol/L Potassium (3.6-5.2) mmol/L Chloride (98-107) mmol/L Carbon Dioxide (22-30) mmol/L Anion Gap (10-20) BUN (7-17) mg/dL Creatinine (0.7-1.2) MG/DL Est GFR ( Amer) Est GFR (Non-Af Amer) POC Glucose (mg/dL) 130 H 75 121 H (65-110) mg/dL Random Glucose (65-105) mg/dL Calcium (8.6-10.4) mg/dl Phosphorus (2.5-4.5) mg/dL Magnesium (1.6-2.3) mg/dL Total Bilirubin (0.2-1.3) mg/dL AST (14-36) U/L ALT (9-52) U/L Alkaline Phosphatase (38-126) U/L Total Protein (6.3-8.3) g/dL Albumin (3.5-5.0) g/dL Globulin (2.2-3.9) gm/dL Albumin/Globulin Ratio (1.0-2.1) Free T4 (0.78-2.19) ng/dL TSH 3rd Generation (0.46-4.68) mIU/L 03/22/17 03/22/17 03/22/17 Range/Units 06:20 06:20 06:20 WBC 9.9 (4.8-10.8) K/uL RBC 4.84 (3.80-5.20) Mil/uL Hgb 14.0 (11.0-16.0) g/dL Hct 42.4 (34.0-47.0) % MCV 87.6 (81.0-99.0) fL MCH 28.9 (27.0-31.0) pg MCHC 32.9 L (33.0-37.0) g/dL RDW 14.3 (11.5-14.5) % Plt Count 209 (130-400) K/uL MPV 9.3 (7.2-11.7) fL Neut % (Auto) 64.7 (50.0-75.0) % Lymph % (Auto) 25.1 (20.0-40.0) % Knox % (Auto) 9.4 (0.0-10.0) % Eos % (Auto) 0.6 (0.0-4.0) % Baso % (Auto) 0.2 (0.0-2.0) % Neut # 6.4 (1.8-7.0) K/uL Lymph # 2.5 (1.0-4.3) K/uL Knox # 0.9 H (0.0-0.8) K/uL Eos # 0.1 (0.0-0.7) K/uL Baso # 0.0 (0.0-0.2) K/uL Sodium 138 (132-148) mmol/L Potassium 4.5 (3.6-5.2) mmol/L Chloride 104 (98-107) mmol/L Carbon Dioxide 28 (22-30) mmol/L Anion Gap 11 (10-20) BUN 13 (7-17) mg/dL Creatinine 0.6 L (0.7-1.2) MG/DL Est GFR ( Amer) > 60 Est GFR (Non-Af Amer) > 60 POC Glucose (mg/dL) (65-110) mg/dL Random Glucose 120 H (65-105) mg/dL Calcium 8.9 (8.6-10.4) mg/dl Phosphorus 2.5 (2.5-4.5) mg/dL Magnesium 2.1 (1.6-2.3) mg/dL Total Bilirubin 0.5 (0.2-1.3) mg/dL AST 117 H (14-36) U/L ALT 38 (9-52) U/L Alkaline Phosphatase 69 (38-126) U/L Total Protein 7.1 (6.3-8.3) g/dL Albumin 3.7 (3.5-5.0) g/dL Globulin 3.4 (2.2-3.9) gm/dL Albumin/Globulin Ratio 1.1 (1.0-2.1) Free T4 1.16 (0.78-2.19) ng/dL TSH 3rd Generation 0.30 L (0.46-4.68) mIU/L 03/21/17 Range/Units 21:14 WBC (4.8-10.8) K/uL RBC (3.80-5.20) Mil/uL Hgb (11.0-16.0) g/dL Hct (34.0-47.0) % MCV (81.0-99.0) fL MCH (27.0-31.0) pg MCHC (33.0-37.0) g/dL RDW (11.5-14.5) % Plt Count (130-400) K/uL MPV (7.2-11.7) fL Neut % (Auto) (50.0-75.0) % Lymph % (Auto) (20.0-40.0) % Knox % (Auto) (0.0-10.0) % Eos % (Auto) (0.0-4.0) % Baso % (Auto) (0.0-2.0) % Neut # (1.8-7.0) K/uL Lymph # (1.0-4.3) K/uL Knox # (0.0-0.8) K/uL Eos # (0.0-0.7) K/uL Baso # (0.0-0.2) K/uL Sodium (132-148) mmol/L Potassium (3.6-5.2) mmol/L Chloride (98-107) mmol/L Carbon Dioxide (22-30) mmol/L Anion Gap (10-20) BUN (7-17) mg/dL Creatinine (0.7-1.2) MG/DL Est GFR ( Amer) Est GFR (Non-Af Amer) POC Glucose (mg/dL) 152 H (65-110) mg/dL Random Glucose (65-105) mg/dL Calcium (8.6-10.4) mg/dl Phosphorus (2.5-4.5) mg/dL Magnesium (1.6-2.3) mg/dL Total Bilirubin (0.2-1.3) mg/dL AST (14-36) U/L ALT (9-52) U/L Alkaline Phosphatase (38-126) U/L Total Protein (6.3-8.3) g/dL Albumin (3.5-5.0) g/dL Globulin (2.2-3.9) gm/dL Albumin/Globulin Ratio (1.0-2.1) Free T4 (0.78-2.19) ng/dL TSH 3rd Generation (0.46-4.68) mIU/L Laboratory Results - last 24 hr 03/21/17 03/22/17 03/22/17 21:14 06:20 06:20 WBC 9.9 RBC 4.84 Hgb 14.0 Hct 42.4 MCV 87.6 MCH 28.9 MCHC 32.9 L RDW 14.3 Plt Count 209 MPV 9.3 Neut % (Auto) 64.7 Lymph % (Auto) 25.1 Knox % (Auto) 9.4 Eos % (Auto) 0.6 Baso % (Auto) 0.2 Neut # 6.4 Lymph # 2.5 Knox # 0.9 H Eos # 0.1 Baso # 0.0 Sodium 138 Potassium 4.5 Chloride 104 Carbon Dioxide 28 Anion Gap 11 BUN 13 Creatinine 0.6 L Est GFR ( Amer) > 60 Est GFR (Non-Af Amer) > 60 POC Glucose (mg/dL) 152 H Random Glucose 120 H Calcium 8.9 Phosphorus 2.5 Magnesium 2.1 Total Bilirubin 0.5 AST 117 H ALT 38 Alkaline Phosphatase 69 Total Protein 7.1 Albumin 3.7 Globulin 3.4 Albumin/Globulin Ratio 1.1 Free T4 TSH 3rd Generation 0.30 L 03/22/17 03/22/17 03/22/17 06:20 07:20 11:45 WBC RBC Hgb Hct MCV MCH MCHC RDW Plt Count MPV Neut % (Auto) Lymph % (Auto) Knox % (Auto) Eos % (Auto) Baso % (Auto) Neut # Lymph # Knox # Eos # Baso # Sodium Potassium Chloride Carbon Dioxide Anion Gap BUN Creatinine Est GFR ( Amer) Est GFR (Non-Af Amer) POC Glucose (mg/dL) 121 H 75 Random Glucose Calcium Phosphorus Magnesium Total Bilirubin AST ALT Alkaline Phosphatase Total Protein Albumin Globulin Albumin/Globulin Ratio Free T4 1.16 TSH 3rd Generation 03/22/17 16:09 WBC RBC Hgb Hct MCV MCH MCHC RDW Plt Count MPV Neut % (Auto) Lymph % (Auto) Knox % (Auto) Eos % (Auto) Baso % (Auto) Neut # Lymph # Knox # Eos # Baso # Sodium Potassium Chloride Carbon Dioxide Anion Gap BUN Creatinine Est GFR ( Amer) Est GFR (Non-Af Amer) POC Glucose (mg/dL) 130 H Random Glucose Calcium Phosphorus Magnesium Total Bilirubin AST ALT Alkaline Phosphatase Total Protein Albumin Globulin Albumin/Globulin Ratio Free T4 TSH 3rd Generation Critical Care Progress Note - Nutrition Nutrition: Nutrition Category Date Time Status Heart Healthy Diet [DIET] Diets 03/21/17 Breakfast Active Attending/Attestation - Attestation I have personally seen and examined this patient.: Yes I have fully participated in the care of the patient.: Yes I have reviewed all pertinent clinical information: Yes Notes (Text): Case discussed with house staff in the morning. Patient seen and examined in the intensive care unit. Status post stent placement LAD Continue anticoagulation, beta mario Transferred to telemetry No further chest pain
[2017-03-22] MEDS: (Novolin R) Insulin Human Regular 100 units/ml vial SC SCH ×4 (08:00→21:41)
[2017-03-22] MEDS: Pantoprazole 40 mg EC Tab PO SCH (09:33)
--- NOTE | 2017-03-22 11:33 | CP.PCM.PN ---
Subjective - Date & Time of Evaluation Date of Evaluation: 03/22/17 Time of Evaluation: 11:31 - Subjective Subjective: Feeling better, no chest pain today. Sitting in chair comfortably. Objective - Vital Signs/Intake and Output Vital Signs (last 24 hours): Temp Pulse Resp BP Pulse Ox 98.3 F 81 12 100/57 L 97 03/22/17 08:00 03/22/17 10:37 03/22/17 10:37 03/22/17 10:37 03/22/17 10:37 Intake and Output: 03/22/17 03/22/17 06:59 18:59 Intake Total 204 Output Total 1100 300 Balance -896 -300 - Medications Medications: Current Medications Aspirin (Aspirin) 325 mg PO DAILY [facility] Last Admin: 03/22/17 09:33 Dose: 325 mg Enalapril Maleate (Vasotec) 5 mg PO DAILY [facility] Last Admin: 03/21/17 09:48 Dose: 5 mg Insulin Human Regular (Novolin R) 0 unit SC ACHS [facility] PRN Reason: Protocol Last Admin: 03/22/17 08:00 Dose: Not Given Metoprolol Tartrate (Lopressor) 25 mg PO BID [facility] Last Admin: 03/22/17 09:33 Dose: 25 mg Morphine Sulfate (Morphine) 2 mg IVP Q4 PRN PRN Reason: Pain, severe (8-10) Ondansetron HCl (Zofran Inj) 4 mg IVP Q6H PRN PRN Reason: Nausea/Vomiting Pantoprazole Sodium (Protonix Ec Tab) 40 mg PO DAILY [facility] Last Admin: 03/22/17 09:33 Dose: 40 mg Pneumococcal Polyvalent Vaccine (Pneumovax 23 Vaccine) 0.5 ml IM .ONCE ONE Stop: 03/23/17 10:01 Rosuvastatin Calcium (Crestor) 10 mg PO HS [facility] Last Admin: 03/21/17 21:44 Dose: 10 mg Ticagrelor (Brilinta) 90 mg PO BID [facility] Last Admin: 03/22/17 09:33 Dose: 90 mg - Labs Labs: 03/22/17 06:20 03/22/17 06:20 PT 10.5 SECONDS (9.7-12.2) 03/20/17 21:47 INR 0.9 03/20/17 21:47 APTT 26 SECONDS (21-34) 03/20/17 21:47 - Head Exam Head Exam: NORMOCEPHALIC - Neck Exam Neck Exam: Normal Inspection - Respiratory Exam Respiratory Exam: NORMAL BREATHING PATTERN - Cardiovascular Exam Cardiovascular Exam: REGULAR RHYTHM - Extremities Exam Extremities Exam: Normal Inspection - Neurological Exam Neurological Exam: Alert Assessment and Plan (1) Acute myocardial infarction Assessment & Plan: Stable, no chest pain or shortness of breath. Status: Acute (2) CHF (congestive heart failure) Assessment & Plan: LV dysfunction, watch for fluid overload, maintain electrolyte balance. Status: Acute
--- NOTE | 2017-03-22 12:27 | CARD ---
APPROVED REPORT EXAM: Two-dimensional and M-mode echocardiogram with Doppler and color Doppler. Other Information Quality : GoodRhythm : NSR INDICATION Cardiac Disease: CAD Chest Pain POST STEMI, 2X STENT (2011) CODE HEART, [place] X2 RISK FACTORS Hypertension Hyperlipidemia Diabetes M-Mode DIMENSIONS RVDd1.41 (2.1-3.2cm)Left Atrium (MM)2.98 (2.5-4.0cm) Aortic Root2.67 (2.2-3.7cm)Aortic Cusp Exc.1.82 (1.5-2.0cm) Mitral Valve MV E Amezluvo15.0cm/sMV A Hqexlirq50.1cm/sE/A ratio1.2 TDI E/Lateral E'0.0E/Medial E'0.0 Tricuspid Valve TR Peak Vnzywowi538yg/sTR Peak Gr.[id number] <Conclusion> Left ventricle: thickness: normal; size: normal; large anterior and apical hypokinesisoverall ejection fraction:40%: diastolic filling pressures:elevated Mitral valve: annulus: normal: leaflets: normal: excursion: normal; no significant trans-mitral gradient: mild incompetence: left atrium: normal Aortic valve: leaflets: normal: excursion: normal; no significant trans-aortic gradient: No significant incompetence: aortic root: normal Right sided Structures: Pulmonary valve: normal; no significant incompetence; Tricuspid valve: normal; no significant incompetence: Intra-cardiac hemodynamics: pulmonary systolic pressures: 34mmHg; central venous pressures: normal No pericardial effusion
--- NOTE | 2017-03-22 13:38 | CARD ---
APPROVED REPORT EKG Measurement Heart [id number] <Conclusion> Sinus tachycardia Anteroseptal infarct, age undetermined Marked ST abnormality, possible inferior subendocardial injury Abnormal ECG
--- NOTE | 2017-03-22 20:29 | CP.PCM.PN ---
Subjective - Date & Time of Evaluation Date of Evaluation: 03/22/17 Time of Evaluation: 18:55 - Subjective Subjective: Hospitalist Progress Note (Patient was seen and examined at 6:55 PM 03/22/17 ICU Bed 3) 56 year old female (PMHx CAD, HTN, HLD, DM 2) presented to [facility] ER with midsternal chest pain (described as pressure like, radiating to back and down the left arm, associated with SOB/Diaphoresis/Nausea). ST changes were noted on EKG and CODE HEART was called and patient underwent Cardiac Catheterization leading to stenting of the LAD on 03/21/17. CODE STATUS: FULL CODE. NO Advance Directive/Living Will. Designates as Health Care Proxy Currrently upon FULL ROS there is NO chest pain, NO palpitations, NO SOB/Cough/ Wheezing, NO abdominal pain, NO n/v/d/c (last bowel movement was 03/22/17 and it was normal), NO burning/pain with urination, NO lightheadedness/dizziness, NO headache, NO new changes in vision, NO new changes in hearing, NO paresthesias, NO diaphoresis. Exam: HEENT: NCA, EOMI, PERRLA, NO lymphadenopathy, NO thyromegaly, NO pharyngeal erythema/exudate Cardio: NS1 and NS2, NO M/R/G Resp: CTA B/L, NO R/R/W GI: BSx4 are decreased, NT, ND, NO HSM, NO guarding rebound tenderness Ext: Pulses are strong and equal, Capillary Refill is 2 seconds, NO edema, NO bleeding at right groin cardiac catheterization entry site Neuro: CN II through XII are grossly intact Assessment and Plan: 1). STEMMI ASA 325 mg PO 1x/day Lisinopril 5 mg PO 1x/day Metoprolol 25 mg PO 2x/day Brilinta 90 mg PO 2x/day Cardiology Dr. Mary 2D Echocardiogram showed EF of 40% and large anterior and apical hypokinesis 2). Hx CAD See Assessment and Plan #1 3). Hx HTN Lisinopril and Metoprolol as above 4). Hx HLD Crestor 10 mg PO QHS Lipid Panel is at goal 5). Hx DM 2 HgBA1C 6.7 HOLDING Metformin 500 mg PO 2x/day for the next 48 hours RISS with Accuchecks Controlled blood glucose 6). Low TSH Repeat TSH was still low but T4 was normal 6). Prophylactic Measures Morphine 2 mg IV Q4H PRN Pain Zofran 4 mg IV Q6H PRN N/V Protonix 40 mg PO 1x/day Disposition: patient is stable and I will touch base with Box Sorter to see if she can be discharged on 03/23/17. Marco Antonio Ureña D.O. Objective - Vital Signs/Intake and Output Vital Signs (last 24 hours): Temp Pulse Resp BP Pulse Ox 98 F 87 20 105/59 L 99 03/22/17 19:45 03/22/17 20:10 03/22/17 20:10 03/22/17 19:52 03/22/17 20:10 Intake and Output: 03/22/17 03/23/17 18:59 06:59 Intake Total 240 Output Total 1000 100 Balance -1000 140 - Medications Medications: Current Medications Aspirin (Aspirin) 325 mg PO DAILY [facility] Last Admin: 03/22/17 09:33 Dose: 325 mg Enalapril Maleate (Vasotec) 5 mg PO DAILY [facility] Last Admin: 03/22/17 16:47 Dose: Not Given Insulin Human Regular (Novolin R) 0 unit SC ACHS [facility] PRN Reason: Protocol Last Admin: 03/22/17 16:41 Dose: Not Given Metoprolol Tartrate (Lopressor) 25 mg PO BID [facility] Last Admin: 03/22/17 18:29 Dose: 25 mg Morphine Sulfate (Morphine) 2 mg IVP Q4 PRN PRN Reason: Pain, severe (8-10) Ondansetron HCl (Zofran Inj) 4 mg IVP Q6H PRN PRN Reason: Nausea/Vomiting Pantoprazole Sodium (Protonix Ec Tab) 40 mg PO DAILY [facility] Last Admin: 03/22/17 09:33 Dose: 40 mg Pneumococcal Polyvalent Vaccine (Pneumovax 23 Vaccine) 0.5 ml IM .ONCE ONE Stop: 03/23/17 10:01 Rosuvastatin Calcium (Crestor) 10 mg PO HS [facility] Last Admin: 03/21/17 21:44 Dose: 10 mg Ticagrelor (Brilinta) 90 mg PO BID [facility] Last Admin: 03/22/17 17:12 Dose: 90 mg - Labs Labs: 03/22/17 06:20 03/22/17 06:20 PT 10.5 SECONDS (9.7-12.2) 03/20/17 21:47 INR 0.9 03/20/17 21:47 APTT 26 SECONDS (21-34) 03/20/17 21:47
[2017-03-23 05:34] VITALS: O2SAT 96
[2017-03-23] MEDS ORDERED: Pneumococcal 23-Valent Vaccine IM ONE (10:00)
[2017-03-23] MEDS: (Novolin R) Insulin Human Regular 100 units/ml vial SC SCH ×3 (10:13→17:32)
[2017-03-23] MEDS: Pantoprazole 40 mg EC Tab PO SCH (10:13)
--- NOTE | 2017-03-23 13:25 | CP.PCM.PN ---
Subjective - Date & Time of Evaluation Date of Evaluation: 03/23/17 Time of Evaluation: 13:22 - Subjective Subjective: Feeling O K , no chest pain or shortness of breath. Objective - Vital Signs/Intake and Output Vital Signs (last 24 hours): Temp Pulse Resp BP Pulse Ox 97.9 F 89 22 82/64 L 96 03/22/17 23:34 03/23/17 05:30 03/23/17 05:30 03/23/17 10:14 03/23/17 05:30 Intake and Output: 03/23/17 03/23/17 06:59 18:59 Intake Total 240 Output Total 100 Balance 140 - Medications Medications: Current Medications Aspirin (Aspirin) 325 mg PO DAILY [facility] Last Admin: 03/23/17 10:13 Dose: 325 mg Enalapril Maleate (Vasotec) 5 mg PO DAILY [facility] Last Admin: 03/23/17 10:14 Dose: Not Given Insulin Human Regular (Novolin R) 0 unit SC ACHS [facility] PRN Reason: Protocol Last Admin: 03/23/17 10:13 Dose: Not Given Metoprolol Tartrate (Lopressor) 25 mg PO BID [facility] Last Admin: 03/23/17 10:13 Dose: Not Given Morphine Sulfate (Morphine) 2 mg IVP Q4 PRN PRN Reason: Pain, severe (8-10) Ondansetron HCl (Zofran Inj) 4 mg IVP Q6H PRN PRN Reason: Nausea/Vomiting Pantoprazole Sodium (Protonix Ec Tab) 40 mg PO DAILY [facility] Last Admin: 03/23/17 10:13 Dose: 40 mg Rosuvastatin Calcium (Crestor) 10 mg PO HS [facility] Last Admin: 03/22/17 21:16 Dose: 10 mg Ticagrelor (Brilinta) 90 mg PO BID [facility] Last Admin: 03/23/17 10:13 Dose: 90 mg - Labs Labs: 03/22/17 06:20 03/22/17 06:20 PT 10.5 SECONDS (9.7-12.2) 03/20/17 21:47 INR 0.9 03/20/17 21:47 APTT 26 SECONDS (21-34) 03/20/17 21:47 - Head Exam Head Exam: NORMOCEPHALIC - Neck Exam Neck Exam: Normal Inspection - Respiratory Exam Respiratory Exam: NORMAL BREATHING PATTERN - Cardiovascular Exam Cardiovascular Exam: REGULAR RHYTHM - Extremities Exam Extremities Exam: Normal Inspection - Neurological Exam Neurological Exam: Alert, Oriented x3 Assessment and Plan (1) Acute myocardial infarction Assessment & Plan: Stable, continue DAPT. Increase garcia of beta blockers if tolerated. DAPT compliance. Status: Acute (2) CHF (congestive heart failure) Assessment & Plan: LV systolic dysfunction, watch for fluid overload and increase ALBERT-I as tolerated. Status: Acute
--- NOTE | 2017-03-23 14:44 | CP.PCM.PN ---
Subjective - Date & Time of Evaluation Date of Evaluation: 03/23/17 Time of Evaluation: 09:00 - Subjective Subjective: Patient was seen at bedside in ICU with by her side. Patient was resting comfortably. She had no complaints today. She inquired about when she would be discharged. She denied chest pain, palpitations, shortness of breath, lightheadedness, headache, diaphoresis, n/v/d/c, abdominal pain. Objective - Vital Signs/Intake and Output Vital Signs (last 24 hours): Temp Pulse Resp BP Pulse Ox 97.9 F 89 22 82/64 L 96 03/22/17 23:34 03/23/17 05:30 03/23/17 05:30 03/23/17 10:14 03/23/17 05:30 Intake and Output: 03/23/17 03/23/17 06:59 18:59 Intake Total 240 Output Total 100 Balance 140 - Medications Medications: Current Medications Aspirin (Aspirin) 325 mg PO DAILY [facility] Last Admin: 03/23/17 10:13 Dose: 325 mg Enalapril Maleate (Vasotec) 5 mg PO DAILY [facility] Last Admin: 03/23/17 10:14 Dose: Not Given Insulin Human Regular (Novolin R) 0 unit SC ACHS [facility] PRN Reason: Protocol Last Admin: 03/23/17 10:13 Dose: Not Given Metoprolol Tartrate (Lopressor) 25 mg PO BID [facility] Last Admin: 03/23/17 10:13 Dose: Not Given Morphine Sulfate (Morphine) 2 mg IVP Q4 PRN PRN Reason: Pain, severe (8-10) Ondansetron HCl (Zofran Inj) 4 mg IVP Q6H PRN PRN Reason: Nausea/Vomiting Pantoprazole Sodium (Protonix Ec Tab) 40 mg PO DAILY [facility] Last Admin: 03/23/17 10:13 Dose: 40 mg Rosuvastatin Calcium (Crestor) 10 mg PO HS [facility] Last Admin: 03/22/17 21:16 Dose: 10 mg Ticagrelor (Brilinta) 90 mg PO BID [facility] Last Admin: 03/23/17 10:13 Dose: 90 mg - Labs Labs: 03/22/17 06:20 03/22/17 06:20 PT 10.5 SECONDS (9.7-12.2) 03/20/17 21:47 INR 0.9 03/20/17 21:47 APTT 26 SECONDS (21-34) 03/20/17 21:47 - Constitutional Appears: Well - Head Exam Head Exam: ATRAUMATIC, NORMAL INSPECTION, NORMOCEPHALIC - Eye Exam Eye Exam: EOMI, Normal appearance, PERRL - ENT Exam ENT Exam: Mucous Membranes Moist, Normal Exam - Neck Exam Neck Exam: Full ROM, Normal Inspection. absent: Lymphadenopathy - Respiratory Exam Respiratory Exam: Clear to Ausculation Bilateral, NORMAL BREATHING PATTERN - Cardiovascular Exam Cardiovascular Exam: REGULAR RHYTHM, +S1, +S2. 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 STEMMI ASA 325 mg PO 1x/day Lisinopril 5 mg PO 1x/day Metoprolol 25 mg PO 2x/day Brilinta 90 mg PO 2x/day Cardiology Dr. Mary 2D Echocardiogram showed EF of 40% and large anterior and apical hypokinesis 2). Hx CAD See Assessment and Plan #1 3). Hx HTN Lisinopril and Metoprolol as above 4). Hx HLD Crestor 10 mg PO QHS Lipid Panel is at goal 5). Hx DM 2 HgBA1C 6.7 HOLDING Metformin 500 mg PO 2x/day for the next 48 hours RISS with Accuchecks Controlled blood glucose 6). Low TSH Repeat TSH was still low but T4 was normal 6). Prophylactic Measures Morphine 2 mg IV Q4H PRN Pain Zofran 4 mg IV Q6H PRN N/V Protonix 40 mg PO 1x/day Disposition: patient is stable and I will touch base with Forester Aide to see if she can be discharged on 03/23/17.
--- NOTE | 2017-03-23 15:50 | CARD ---
APPROVED REPORT EKG Measurement Heart [id number] <Conclusion> Age and gender specific ECG analysis Normal sinus rhythm Anteroseptal infarct, possibly acute T wave abnormality, consider lateral ischemia ACUTE [place] / STEMI Abnormal ECG
--- NOTE | 2017-03-23 15:55 | CARD ---
APPROVED REPORT EKG Measurement Heart [id number] VT [id number] <Conclusion> Normal sinus rhythm Acute anterior infarct in evolution. Abnormal ECG
--- NOTE | 2017-03-23 17:22 | CP.PCM.DIS ---
<Moshe Avalos - Last Filed: 03/23/17 17:12> Provider - Provider Date of Admission: 03/20/17 21:36 Attending physician: Jason Mary MD Primary care physician: PMD: n/a Consults: Cardio - Dr Mary Time Spent in preparation of Discharge (in minutes): 45 Hospital Course - Lab Results Lab Results: Most Recent Lab Values WBC 9.9 K/uL (4.8-10.8) 03/22/17 06:20 RBC 4.84 Mil/uL (3.80-5.20) 03/22/17 06:20 Hgb 14.0 g/dL (11.0-16.0) 03/22/17 06:20 Hct 42.4 % (34.0-47.0) 03/22/17 06:20 MCV 87.6 fL (81.0-99.0) 03/22/17 06:20 MCH 28.9 pg (27.0-31.0) 03/22/17 06:20 MCHC 32.9 g/dL (33.0-37.0) L 03/22/17 06:20 RDW 14.3 % (11.5-14.5) 03/22/17 06:20 Plt Count 209 K/uL (130-400) 03/22/17 06:20 MPV 9.3 fL (7.2-11.7) 03/22/17 06:20 Neut % (Auto) 64.7 % (50.0-75.0) 03/22/17 06:20 Lymph % (Auto) 25.1 % (20.0-40.0) 03/22/17 06:20 Rush % (Auto) 9.4 % (0.0-10.0) 03/22/17 06:20 Eos % (Auto) 0.6 % (0.0-4.0) 03/22/17 06:20 Baso % (Auto) 0.2 % (0.0-2.0) 03/22/17 06:20 Neut # 6.4 K/uL (1.8-7.0) 03/22/17 06:20 Lymph # 2.5 K/uL (1.0-4.3) 03/22/17 06:20 Rush # 0.9 K/uL (0.0-0.8) H 03/22/17 06:20 Eos # 0.1 K/uL (0.0-0.7) 03/22/17 06:20 Baso # 0.0 K/uL (0.0-0.2) 03/22/17 06:20 PT 10.5 SECONDS (9.7-12.2) 03/20/17 21:47 INR 0.9 03/20/17 21:47 APTT 26 SECONDS (21-34) 03/20/17 21:47 Sodium 138 mmol/L (132-148) 03/22/17 06:20 Potassium 4.5 mmol/L (3.6-5.2) 03/22/17 06:20 Chloride 104 mmol/L (98-107) 03/22/17 06:20 Carbon Dioxide 28 mmol/L (22-30) 03/22/17 06:20 Anion Gap 11 (10-20) 03/22/17 06:20 BUN 13 mg/dL (7-17) 03/22/17 06:20 Creatinine 0.6 MG/DL (0.7-1.2) L 03/22/17 06:20 Est GFR ( Amer) > 60 03/22/17 06:20 Est GFR (Non-Af Amer) > 60 03/22/17 06:20 POC Glucose (mg/dL) 118 mg/dL (65-110) H 03/23/17 16:01 Random Glucose 120 mg/dL (65-105) H 03/22/17 06:20 Hemoglobin A1c 6.7 % (4.2-6.5) H 03/20/17 21:47 Calcium 8.9 mg/dl (8.6-10.4) 03/22/17 06:20 Phosphorus 2.5 mg/dL (2.5-4.5) 03/22/17 06:20 Magnesium 2.1 mg/dL (1.6-2.3) 03/22/17 06:20 Total Bilirubin 0.5 mg/dL (0.2-1.3) 03/22/17 06:20 AST 117 U/L (14-36) H 03/22/17 06:20 ALT 38 U/L (9-52) 03/22/17 06:20 Alkaline Phosphatase 69 U/L (38-126) 03/22/17 06:20 Total Creatine Kinase 1043 U/L (30-135) H 03/21/17 14:03 CK-MB (Mass) 53.9 ng/mL (0.0-3.38) H 03/21/17 14:03 Troponin I, Quant 11.7000 ng/mL (0.00-0.120) H* 03/21/17 14:03 Total Protein 7.1 g/dL (6.3-8.3) 03/22/17 06:20 Albumin 3.7 g/dL (3.5-5.0) 03/22/17 06:20 Globulin 3.4 gm/dL (2.2-3.9) 03/22/17 06:20 Albumin/Globulin Ratio 1.1 (1.0-2.1) 03/22/17 06:20 Triglycerides 87 mg/dL (0-149) 03/21/17 06:11 Cholesterol 124 mg/dL (0-199) 03/21/17 06:11 LDL Cholesterol Direct 65 mg/dL (0-129) 03/21/17 06:11 HDL Cholesterol 45 mg/dL (30-70) 03/21/17 06:11 Free T4 1.16 ng/dL (0.78-2.19) 03/22/17 06:20 TSH 3rd Generation 0.30 mIU/L (0.46-4.68) L 03/22/17 06:20 Serum Ketones Small (NEGATIVE) 03/20/17 21:47 Blood Type A NEGATIVE 03/20/17 21:47 Antibody Screen Negative 03/20/17 21:47 - Hospital Course Hospital Course: CC: Chest pain HPI: 56 F with PMHx of HTN, HLD, DM, CAD, ND x2 with 2 stents (2011) presented to ED with Chest pain. CODE HEART called 21:35. Patient reports she was attending a wedding today when midsternal chest pain started 2 hours prior to arrival. The pain was pressure like in nature, radiated to her back and down her left arm. She became diaphoretic, SOB, she experienced nausea as well. She was given ASA and nitro out on the field, upon arrival EKG: Sinus Tachycardia ( 112), ST/T Changes (poss ant wall ND). Heparin, Brilinta administered. Dr. Mary notified patient sent to Courtesy Clerk. PMHx: HTN, HLD, DM, CAD, ND x2 with 2 stents (2011) PSHx: Cardiac Stents Meds: Lipitor, Metoprolol, metformin All: NKDA SHx: smokes 10 cigarettes per day /20 years, denied alcohol or illicit drug use FHx: brother and father had ND Hospital Course: The patient underwent Cardiac Catheterization leading to stenting of the proximal LAD on 03/20/2017. An ECHO was done which showed anterior and apical hypokinesia and reduced EF at 40%. The patient was started on dual antiplatelet therapy. HbA1C was elevated at 6.7, she was covered with insulin and metformin ( metformin was held 2 days after cath procedure). Her hypokalemia was addressed with potassium repletion. Her TSH was low, a repeat TSH was done which was still low but T4 was normal. The patient was sent home on the appropriate medications to address her medical problems and instructed to follow up with card stripper in 7 days. 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 - Neurological Exam Neurological exam: Alert, Oriented x3 - Psychiatric Exam Psychiatric exam: Normal Affect, Normal Mood Discharge Plan - Discharge Medications Prescriptions: Aspirin 325 mg PO DAILY #30 tab Enalapril Maleate [Vasotec] 5 mg PO DAILY #30 tab Metoprolol Tartrate [Lopressor] 25 mg PO BID #60 tab Ticagrelor [Brilinta] 90 mg PO BID #60 tab - Follow Up Plan Condition: CRITICAL Disposition: HOME/ ROUTINE Instructions: Myocardial Infarction (DC), Coronary Intravascular Stent Placement (DC) Additional Instructions: Please relay the following instructions to the patient: The following prescriptions will be sent home with the patient and should be taken as instructed: Aspirin 325mg po once a day after breakfast metformin 500mg bid po after breakfast and dinner metoprolol tartrate 25mg bid po after breakfast and dinner enalipril 5mg po after lunch atorvastatin 20mg po once a day after dinner brillenta 90 mg po bid before breakfast and dinner Please make sure to follow up with your card stripper in 7 days Do not engage in heavy lifting or strenuous activity until cleared to do so by your card stripper If you notice bleeding from the cath insertion site or if symptoms return please return to ED. Referrals: Jason Mary MD [Staff Provider] - <Marco Antonio Ureña - Last Filed: 03/23/17 20:02> Provider - Provider Date of Admission: 03/20/17 21:36 Attending physician: Jason Mary MD Hospital Course - Lab Results Lab Results: Most Recent Lab Values WBC 9.9 K/uL (4.8-10.8) 03/22/17 06:20 RBC 4.84 Mil/uL (3.80-5.20) 03/22/17 06:20 Hgb 14.0 g/dL (11.0-16.0) 03/22/17 06:20 Hct 42.4 % (34.0-47.0) 03/22/17 06:20 MCV 87.6 fL (81.0-99.0) 03/22/17 06:20 MCH 28.9 pg (27.0-31.0) 03/22/17 06:20 MCHC 32.9 g/dL (33.0-37.0) L 03/22/17 06:20 RDW 14.3 % (11.5-14.5) 03/22/17 06:20 Plt Count 209 K/uL (130-400) 03/22/17 06:20 MPV 9.3 fL (7.2-11.7) 03/22/17 06:20 Neut % (Auto) 64.7 % (50.0-75.0) 03/22/17 06:20 Lymph % (Auto) 25.1 % (20.0-40.0) 03/22/17 06:20 Rush % (Auto) 9.4 % (0.0-10.0) 03/22/17 06:20 Eos % (Auto) 0.6 % (0.0-4.0) 03/22/17 06:20 Baso % (Auto) 0.2 % (0.0-2.0) 03/22/17 06:20 Neut # 6.4 K/uL (1.8-7.0) 03/22/17 06:20 Lymph # 2.5 K/uL (1.0-4.3) 03/22/17 06:20 Rush # 0.9 K/uL (0.0-0.8) H 03/22/17 06:20 Eos # 0.1 K/uL (0.0-0.7) 03/22/17 06:20 Baso # 0.0 K/uL (0.0-0.2) 03/22/17 06:20 PT 10.5 SECONDS (9.7-12.2) 03/20/17 21:47 INR 0.9 03/20/17 21:47 APTT 26 SECONDS (21-34) 03/20/17 21:47 Sodium 138 mmol/L (132-148) 03/22/17 06:20 Potassium 4.5 mmol/L (3.6-5.2) 03/22/17 06:20 Chloride 104 mmol/L (98-107) 03/22/17 06:20 Carbon Dioxide 28 mmol/L (22-30) 03/22/17 06:20 Anion Gap 11 (10-20) 03/22/17 06:20 BUN 13 mg/dL (7-17) 03/22/17 06:20 Creatinine 0.6 MG/DL (0.7-1.2) L 03/22/17 06:20 Est GFR ( Amer) > 60 03/22/17 06:20 Est GFR (Non-Af Amer) > 60 03/22/17 06:20 POC Glucose (mg/dL) 118 mg/dL (65-110) H 03/23/17 16:01 Random Glucose 120 mg/dL (65-105) H 03/22/17 06:20 Hemoglobin A1c 6.7 % (4.2-6.5) H 03/20/17 21:47 Calcium 8.9 mg/dl (8.6-10.4) 03/22/17 06:20 Phosphorus 2.5 mg/dL (2.5-4.5) 03/22/17 06:20 Magnesium 2.1 mg/dL (1.6-2.3) 03/22/17 06:20 Total Bilirubin 0.5 mg/dL (0.2-1.3) 03/22/17 06:20 AST 117 U/L (14-36) H 03/22/17 06:20 ALT 38 U/L (9-52) 03/22/17 06:20 Alkaline Phosphatase 69 U/L (38-126) 03/22/17 06:20 Total Creatine Kinase 1043 U/L (30-135) H 03/21/17 14:03 CK-MB (Mass) 53.9 ng/mL (0.0-3.38) H 03/21/17 14:03 Troponin I, Quant 11.7000 ng/mL (0.00-0.120) H* 03/21/17 14:03 Total Protein 7.1 g/dL (6.3-8.3) 03/22/17 06:20 Albumin 3.7 g/dL (3.5-5.0) 03/22/17 06:20 Globulin 3.4 gm/dL (2.2-3.9) 03/22/17 06:20 Albumin/Globulin Ratio 1.1 (1.0-2.1) 03/22/17 06:20 Triglycerides 87 mg/dL (0-149) 03/21/17 06:11 Cholesterol 124 mg/dL (0-199) 03/21/17 06:11 LDL Cholesterol Direct 65 mg/dL (0-129) 03/21/17 06:11 HDL Cholesterol 45 mg/dL (30-70) 03/21/17 06:11 Free T4 1.16 ng/dL (0.78-2.19) 03/22/17 06:20 TSH 3rd Generation 0.30 mIU/L (0.46-4.68) L 03/22/17 06:20 Serum Ketones Small (NEGATIVE) 03/20/17 21:47 Blood Type A NEGATIVE 03/20/17 21:47 Antibody Screen Negative 03/20/17 21:47 Attending/Attestation - Attestation I have personally seen and examined this patient.: Yes I have fully participated in the care of the patient.: Yes I have reviewed all pertinent clinical information, including history, physical exam and plan: Yes Notes (Text): 03/23/17 20:01 Patient was seen and examined at 4:40 PM 03/23/17 Assessement and Plan and discharge instructions were thoroughly gone over with the Resident. I spoke with P[employer] Dr. Mary and she was cleared by him for discharge. Medications were also gone over with Dr. Mary. Marco Antonio Ureña D.O.
[2017-03-23 18:18] VITALS: BP 111/64; PULSE 90; RESP 18
[2017-03-23 18:20] VITALS: TEMP 98.4
--- NOTE | 2017-04-06 11:10 | CARDCATH ---
Cardiac catheterization DOS: 03/20/2017 Clinical history: Patient who is a 56 year old female with history coronary artery disease s/p stent and in the past who was attending a wedding ceremony when she had chest pain and EMS was called in. Patient was fo8und to have an NE. Patient was transferred to [facility] where she was treated accordingly. Patient was brought to systems testing laboratory technician for cardiac catheterization. Procedure: After obtaining consent and after preparing patient for cardiac catheterization , right groin was used for access. Judkin's technique were used for access and after obtaining access, 6 F sheath was introduced into right femoral artery and access was complete without complication. XB LAD 3.5 catheter used to visualize left artery system and intervention. Initial picture showed that lady had a stent in the proximal segment which was 100% closed. The wire was crossed through the lesion After restoring flow, 2.75 x15 MAKAYLA stent and proximal to the stent. And the stent was dilated with multiple inflations. After completing the intervention, the pictures showed that there was PACO 3 flow without any obstruction. After completing the intervention, 6 F JR catheter was used to visualize RCA system which showed there was no significant disease. 6 F pig tail was used to assess LV end diastolic pressure and LV function. Findings: 100% of occlusion of mid LAD with successful angioplasty of LAD. Non- obstructive disease of the RCA. Reduced LV systolic function with anterior, apical, and distal inferior hypokinesis. Plan: Patient will be admitted in the CCU where she will be monitored continually. Patient will be started on integrilin for 24 hours. Patient will be continued on beta-mario, lipid lowering agents. Patient will also be given IV fluids and labs will be checked in the morning. LINDAD
== END 2017-03-23 18:35 | disposition home or self-care (01) | DRG 853 ==
LOC: C.ER 21:25 → C.9I 21:36
PROVIDERS: ADMIT Internal Medicine; ATTEND Internal Medicine
PROC: 4A023N7 Measurement of Cardiac Sampling and Pressure, Left Heart, Percutaneous Approach (ICD-10-PCS; principal; 2017-03-20)
PROC: 027034Z Dilation of Coronary Artery, One Artery with Drug-eluting Intraluminal Device, Percutaneous Approach (ICD-10-PCS; 2017-03-20)
PROC: B2051ZZ Plain Radiography of Left Heart using Low Osmolar Contrast (ICD-10-PCS; 2017-03-20)
PROC: B2011ZZ Plain Radiography of Multiple Coronary Arteries using Low Osmolar Contrast (ICD-10-PCS; 2017-03-20)
DX: I21.02 ST elevation (STEMI) myocardial infarction involving left anterior descending coronary artery (principal); I10 Essential (primary) hypertension; E87.6 Hypokalemia; E10.9 Type 1 diabetes mellitus without complications; E78.00 Pure hypercholesterolemia, unspecified; E78.5 Hyperlipidemia, unspecified; I25.10 Atherosclerotic heart disease of native coronary artery without angina pectoris; I25.2 Old myocardial infarction; Z79.01 Long term (current) use of anticoagulants; Z79.82 Long term (current) use of aspirin; Z79.4 Long term (current) use of insulin; Z82.49 Family history of ischemic heart disease and other diseases of the circulatory system; Z95.5 Presence of coronary angioplasty implant and graft; F17.210 Nicotine dependence, cigarettes, uncomplicated